=== PATIENT | male | born 1990 | race Caucasian/White ===

== ENCOUNTER 2020-08-14 16:57 | Outpatient (CLI) | payer BC, SELFPAY ==
--- NOTE | ~2020-08-14 | CT_ITS ---
EXAMINATION: CT abdomen pelvis wo con DATE: 08/14/2020 17:28 INDICATION: Right flank pain. History of kidney stones. TECHNIQUE: Computed tomography (CT) of the abdomen and pelvis was performed without intravenous contr ast. The dose-length product was 429.12 mGy-cm. Automated exposure control and iterative reconstructi on technique were employed. COMPARISON: None. FINDINGS: Lung bases unremarkable. Heart size normal. No pleural or pericardial effusion. No signific ant vascular abnormality. There are varicose veins in the left retroperitoneum, nonspecific. No evide nce for appendicitis. The liver, spleen, pancreas, adrenal glands and kidneys are unremarkable. There is a 7 mm distal righ t ureteral stone with mild hydronephrosis. No renal stones. Prostate gland is mildly prominent. Gallb ladder is contracted. Nonobstructive bowel gas pattern. No osteolytic or osteoblastic lesions. IMPRESSION: 1. Distal right ureteral stone measuring 7 mm with mild hydronephrosis. Reviewed, dictated and finalized at location A. MANAGER
== END 2020-08-14 16:58 | disposition home or self-care (01) ==
DX: R30.9 Painful micturition, unspecified (principal); R10.9 Unspecified abdominal pain; N20.1 Calculus of ureter
CPT/HCPCS: 74176

== ENCOUNTER 2024-09-08 17:18 | Emergency (ER) | payer BC, SELFPAY ==
[2024-09-08 17:18] VITALS: PULSE 85; RESP 16; TEMP 36.7; O2SAT 98
[2024-09-08 17:26] VITALS: BP 167/107
--- NOTE | 2024-09-08 17:45 | ED.DENTAL ---
HPI - Dental/Oral General Chief complaint: Dental/Oral Stated complaint: mouth infection Time Seen by Provider: 09/08/24 17:39 Source: patient Mode of arrival: ambulatory Limitations: no limitations History of Present Illness HPI Narrative: 33-year-old male with a history of hypertension on lisinopril, dental caries presents to the ED with -- left lower 1/2 premolar and 1st molar pain and erosion of the enamel. he went to his dentist who refused to extract these teeth as his blood pressure was high. -- He has a history of high blood pressure and is on lisinopril. His current blood pressure is noted to be 167/107. The patient has had blood work in the recent past without any significant abnormalities. MD Complaint: tooth pain Location: Tooth # ( 06/25/14-- erosion of enamel exposure of the discolored dentin) Onset (ago): day(s) Duration: constant Relieving factors: nothing Exacerbating factors: cold and heat Context: history of dental caries Treatment prior to arrival: none Related Data Home Medications ?Medication ?Instructions ?Recorded ?Confirmed ?Last Taken ?Type azithromycin 250 mg tablet mg 09/08/24 Unknown History ibuprofen 800 mg tablet mg 09/08/24 Unknown History lisinopril 10 mg tablet mg 09/08/24 Unknown History tramadol 50 mg tablet mg 09/08/24 Unknown History Allergies Allergy/AdvReac Type Severity Reaction Status Date / Time No Known Allergies Allergy Verified 09/08/24 17:26 Review of Systems Review of Systems: All systems reviewed & are unremarkable except as noted in HPI and below PMFSH Past Medical History Medical History (Updated 09/08/24 @ 18:08 by Regulo Boyle MD) Dental caries Hypertension Exam Narrative: blood pressure 167/107 Const: General: healthy appearing Nutritional Appearance: well nourished Orientation/consciousness: patient oriented x3 Limitations: no limitations HENMT: Head: normal to inspection Ears: external ears normal Face/Nose/Sinus: Normal external nose present Face and sinus: normal facial exam Teeth and gingiva: dentition normal ( dental erosion involving 12, 13, 14) Throat: posterior oropharynx normal Eyes: Conjunctivae: conjunctivae normal Pupils: Equal, round and reactive pupils present EOM: EOMs intact bilaterally Direct Ophthalmoscopy: no photophobia Neck: Neck: normal visual inspection, no lymphadenopathy and no meningeal signs Chest: Chest palpation & inspection: normal inspection of the chest Resp: Effort & Inspection: normal respiratory effort Auscultation: clear to auscultation bilaterally Cardio: Rate: regular rate Rhythm: regular rhythm GI: Auscultation: normal bowel sounds Other: no tenderness/rigidity / rebound. : General: Yes no CVA tenderness Back/Spine/Pelvis: Back: no CVA tenderness Skin: General skin exam: normal color Rashes: no rashes Wounds: no wounds Neuro: General: patient oriented x3, moves all extremities, no meningeal signs, no focal motor deficits and CN's II-XI intact bilaterally Speech: normal speech Extrem: General: normal to inspection and no clubbing, cyanosis or edema Psych: Mental Status: mental status grossly normal Affect: normal affect Course Course Emergency Course: Dental caries/ dental pain hypertension-- blood pressure of 167/107. The patient is on lisinopril 10. Will add hydrochlorothiazide Vital Signs Vital signs: Vital Signs Temperature 36.7 C 09/08/24 17:18 Pulse Rate 85 09/08/24 17:18 Respiratory Rate 16 09/08/24 17:18 Pulse Oximetry 98 09/08/24 17:18 Oxygen Delivery Room Air 09/08/24 17:18 Temperature 36.7 C 09/08/24 17:18 Pulse Rate 85 09/08/24 17:18 Respiratory Rate 16 09/08/24 17:18 Blood Pressure 167/107 H 09/08/24 17:26 Pulse Oximetry 98 09/08/24 17:18 Oxygen Delivery Room Air 09/08/24 17:18 MDM - Dental/Oral MDM Narrative Medical decision making narrative: dental caries dental pain hypertension Differential Diagnosis Differential diagnosis: Likely gingival abscess and toothache Medical Records Attestation: I reviewed the patient's medical records. Lab Data Attestation: I reviewed the patient's lab results. Discharge Plan Discharge Clinical Impression: Dental caries, Hypertension Patient Disposition: Home, Self-Care Condition: Stable Instructions: Antibiotic Form, Hypertension (ED), Toothache (ED) Patient Language: Peruvian Prescriptions: New hydrochlorothiazide 25 mg tablet 25 mg PO DAILY Qty: 90 0RF amoxicillin 500 mg capsule 1,000 mg PO Q12H Qty: 28 0RF hydrocodone-acetaminophen 5-325 mg tablet 1 tablet PO Q6H PRN (Reason: pain) Qty: 5 0RF No Action azithromycin 250 mg tablet ibuprofen 800 mg tablet tramadol 50 mg tablet lisinopril 10 mg tablet Follow-up/Referrals: Shad,Samantha Gurrola NP [Primary Care Provider] - Stand Alone Forms: Work/School Release IP Time of Disposition: 18:12
[2024-09-08 18:00] VITALS: BP 176/105; PULSE 80; RESP 18; O2SAT 99
[2024-09-08 18:18] VITALS: BP 158/116; PULSE 78; RESP 18; O2SAT 99
--- OUTSIDE RECORDS SUMMARY | 2024-09-08 18:38 | XMS_ITS | Continuity of Care Document ---
Author Organization [facility] Address [address] [place] [phone] Phone Care Team Providers Care Assistant Real Estate Manager Name Role Phone Nicola GODINEZ Betito Unavailable Unavailable Procedures Procedure Date Exam Limited Problem Focused Xray Periapical First Film Advance Directives Directive Yes / No Effective Date File Name No Information Encounters Encounter Description Practice Location Reason(s) For Visit Diagnoses Date Provider Providers Copied on Encounter [facility], [address] [place] [address], [id number], tel:[phone] No Information Nicola Betito. [address] [place], [place], [id number] . tel:[phone] Family History Family Member Type Diagnosis Age At Onset No Information Payers Payer name Insurance type Covered republican ID Authoriza tion(s) No Information Social History Type Description Quantity Date Captured Comments Sex Male Smoking Status No Information Chief Complaint And Reason For Visit No Information Reason For Referral Reason For Referral No Information History Of Present Illness Encounter Date Complaint History Of Prese nt Illness No Information Functional Status Date Functional Assessmen t No Information Instructions Date Instruction Additional Infor mation No Information Assessments Type Assessment Date No Information Patient Care Teams Name Effective Dates (start - stop) Status Members No Information
--- OUTSIDE RECORDS SUMMARY | 2024-09-08 18:38 | XMS_ITS | Data Portability ---
Author Organization [place] [facility], Main Office Address [address] [place] [address] Assessment Encounter Date Assessment Date Assessment LastModified by Organization Details LastModified Time 02/05/2023 02/05/2023 Call office if worse, ER if life-threatening illness RTC in 6 months and p.r.n. He voices understanding of plan and agrees [email or web address] Not available 02/05/2023 14:05:59 07/01/2023 07/01/2023 WEA- 07/01/23 Call office if worse, ER if life-threatening illness RTC in 6 months and p.r.n.- he plans transfer to a PCP in [place] He voices understanding of plan and agrees [email or web address] Not available 07/01/2023 12:00:26 Plan of Treatment Reminders Order Date Submit Date Provider Last Modified By Organization Details Last Modified Time Details Appointments None recorded. Lab CBC w/ auto diff [address] - Outpatient Lab, [address] [place], [address], 5 10:11:48 lipid panel, serum [address] Outpatient Lab, [address] [place], [address], 5 10:11:48 CMP, serum or plasma [address] Outpatient Lab, [address] [place], [address], 5 10:11:48 vitamin D, 25-hydroxy, total, serum [email or web address] Outpatient Lab, [address] [place], [address], 5 10:11:49 HbA1c (hemoglobin A1c), blood [email or web address] Outpatient Lab, [address] [place], [address], 5 10:11:49 hepatic function panel, serum [address] Outpatient Lab, [address] [place], [address], 5 10:11:48 CMP, serum or plasma 2022 023 [email or web address] [facility], [address], [place], [address], 4 12:54:07 CBC w/ auto diff 2022 023 [email or web address] [facility], [address], [place], [address], 4 12:54:07 lipid panel, serum 2022 023 [email or web address] [facility], [address], [place], [address], 3 11:53:38 HbA1c (hemoglobin A1c), blood 2022 023 [employer] [facility], [address], [place], [address], 3 11:53:38 CMP, serum or plasma 2022 023 [employer] [facility], [address], [place], [address], 3 11:53:38 CBC w/ auto diff 2022 023 [place] [employer] [facility], [address], [place], [address], 11:53:38 Referral None recorded. Procedures None recorded. Surgeries None recorded. Imaging None recorded. Medication Orders lisinopril 10 mg tablet 2024 025 [facility], [address] [place], [address], 5 12:47:38 Mounjaro 2.5 mg/0.5 mL subcutaneou s pen injector 2024 025 [email or web address] 3 [facility], [address] [place], [address], 5 14:53:50 lisinopril 10 mg tablet 2022 023 [facility], [address] [place], [address], 3 11:09:45 lisinopril 10 mg tablet [email or web address] [facility], [address] [place], [address], 3 14:00:42 Patient TargetsNo targets recorded. Patient Instructions Encounter Date Encounter Id Patient Instructions Last Modified By Organization Details Last Modified Time 07/01/2023 [id number] INFLUENZA VACCIN E Recommended today, but patient declined TD/TDAP Recommended today, patient declined Ordered Patient will get at local pharmacy/health department COLORECTAL SCREENING Recommended today, but patient declined Ordered Colonoscopy declined. Cologuard ordered No screening necessary until age 45 DEPRESSION SCREENING Negative BMI Overweight Continue healthy eating & exercise NUTRITION Continue healthy eating & exercise PHYSICAL ACTIVITY Need more activity minimum of 10-20 minutes of activity that causes mild breathlessness/da y minimum of 20-30 minutes activity that causes mild breathlessness/da y minimum of 30-40 minutes of activity that causes mild breathlessness/da y VISION Ordered Recommend ed today ALCOHOL USE No alcohol use Occasional/So cial Use TOBACCO USE former smoker current tobacco use Patient is not interested in smoking cessation at this time- Handout given GLUCOSE SCREENING Not needed LIPID SCREENING Not needed Not available 07/01/2023 12:01:35 Reason for Referral None Reported. Results Created Date Observation Date Name Description Value Unit Range Abnormal Flag Note LastModifiedBy Organization Detail LastModifiedTime Result Notes None recorded. Problems Name Problem SNOMED Code Status Onset Date Resolution Date Notes Provider Name and Address Organization Details Recorded Time Essential hypertension 98679636 Active 2022 ALEX NewmanC [address], [address], [place], [address], [employer] 3 12:41:31 Nicotine dependence 03335729 Active 2022 SHRAVAN Newman-C [address], [address], [place], [address], [employer] 3 14:06:35 Liver enzymes level above reference range 518605153 Active 2022 Crystal Maradiaga MA null, [employer] 3 11:18:30 Chest pain 45485093 Active 2022 ALEX NewmanC [address], [address], [place], [address], [employer] 3 10:58:36 Chronic dental pain Active 2024 BAUTISTA Serrano [address], [address], [place], [address], [employer] 5 10:24:50 Pain due to dental trauma Active 2024 BAUTISTA Serrano [address], [address], [place], [address], [employer] 5 10:25:23 Problem Notes None recorded. Procedures Surgical History Date Name Laterality Status Provider Name and Address Organization Details Recorded Time reconstruction of facial bones completed Crystal Maradiaga MA [employer] [facility] 02/05/2023 12:05:48 Lithotripsy completed Crystal Maradiaga MA [facility] [employer] [facility] 02/05/2023 12:06:05 Imaging Results None recorded. Procedure Notes None recorded. Medical Equipment None Reported. Allergies No known drug allergies Medications Name Sig Start Date Stop Date Status Note LastModified by Organization Details LastModified Time ibuprofen 800 mg tablet Take 1 tablet 3 times a day by oral route as needed. 2024 active Not Available Not Available Not Avai lable prednisone 20 mg tablet TAKE 2 TABLETS BY MOUTH ONCE DAILY IN THE MORNING WITH BREAKFAST FOR 5 DAYS 08/26 completed Not Available Not Available Not Available Zithromax Z-Dean 250 mg tablet TAKE 2 TABLETS (500 MG) BY ORAL ROUTE ONCE DAILY FOR 1 DAY THEN 1 TABLET (250 MG) BY ORAL ROUTE ONCE DAILY FOR 4 DAYS 2024 active Not Available Not Available Not Avai lable tramadol 50 mg tablet Take 1 tablet every 8 hours by oral route as needed, for severe pain. 2024 active Not Available Not Available Not Avai lable lisinopril 10 mg tablet Take 1 tablet every day by oral route. 2024 active Not Available Not Available Not Avai lable Mounjaro 2.5 mg/0.5 mL subcutaneou s pen injector INJECT 1 SYRINGE SUBCUTANE OUSLY ONCE A WEEK 2024 active Not Available Not Available Not Avai lable Vitals Date Recorded Body weight Body mass index (BMI) Body height Body temperature Heart rate Oxygen saturation Oxygen saturation in Arterial blood by Pulse oximetry Systolic blood pressure Diastolic blood pressure Provider Name and Address Organization Details Last Updated DateTime 3 21704.1 7 g 29.7 kg/m2 180.34 cm 98.3 [degF] 88 /min 97 % 97 % 128 mm[Hg] 84 mm[Hg] Crystal Maradiaga MA [facility] [employer] [facility] 3 12:08:47 Date Recorded Body height Body mass index (BMI) Body weight Body temperature Heart rate Oxygen saturation Oxygen saturation in Arterial blood by Pulse oximetry Systolic blood pressure Diastolic blood pressure Provider Name and Address Organization Details Last Updated DateTime 3 180.34 cm 29.4 kg/m2 66487.9 9 g 98.1 [degF] 108 /min 98 % 98 % 162 mm[Hg] 92 mm[Hg] Crystal Maradiaga MA [facility] [employer] [facility] 3 10:56:10 Date Recorded Body weight Body mass index (BMI) Body height Provider Name and Address Organization Details Last Updated DateTime 08/26/2024 92838.32 g 30.7 kg/m2 180.34 cm BAUTISTA Serrano [address] [facility], [facility] [address], [place], [address], [facility] [employer] 08/26/2024 12:32:50 Date Recorded Body temperature Heart rate Oxygen saturation Oxygen saturation in Arterial blood by Pulse oximetry Systolic blood pressure Diastolic blood pressure Provider Name and Address Organization Details Last Updated DateTime 97.6 [degF] 87 /min 99 % 99 % 142 mm[Hg] 88 mm[Hg] Yadira Ferguson RN [facility] [employer] [facility] 12:30:56 Social History Question Answer Notes LastModified by Organizat ion Details LastModified Time Tobacco Smoking Status Current Every Day Smoker Crystal Maradiaga MA null, [facility] [employer] 02/05/2023 12:01:21 What Is Your Level Of Alcohol Consumption? Occasional Information not available 02/05/2023 What Is Your Level Of Caffeine Consumption? Heavy Information not available 02/05/2023 In The 14 Days Before Symptom Onset, Have You Had Close Contact With A Laboratory-confi rmed COVID-19 While That Case Was Ill? No Information not available 02/05/2023 In The 14 Days Before Symptom Onset, Have You Had Close Contact With A Person Who Is Under Investigation For COVID-19 While That Person Was Ill? No Information not available 02/05/2023 Are You Currently Employed? Yes Information not available 02/05/2023 What Type Of Diet Are You Following? REGULAR Information not available 02/05/2023 Do You Or Have You Ever Used E-cigarettes Or Vape? Current User Of Electronic Cigarettes Information not available 02/05/2023 What Is The Highest Grade Or Level Of School You Have Completed Or The Highest Degree You Have Received? 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 No Information not available 02/05/2023 What Is The Fluoride Status Of Your Home? Unknown Information not available 02/05/2023 Are There Any Guns Present In Your Home? Yes Information not available 02/05/2023 Do You Use Insect Repellent Routinely? No Information not available 02/05/2023 Where Do You Live? [facility] Information not available 02/05/2023 What Was The Date Of Your Most Recent Tobacco Screening? 07/01/2023 Information not available 07/01/2023 Do You Have Any Pets? Yes Information not available 02/05/2023 What Is Your Relationship Status? Information not available 02/05/2023 Do You Use Your Seat Belt Or Car Seat Routinely? No Information not available 02/05/2023 Do You Have Smoke And Carbon Monoxide Detectors In Your Home? Yes Information not available 02/05/2023 Are You Passively Exposed To Smoke? Yes Information not available 02/05/2023 Are There Any Smokers In Your House? No Information not available 02/05/2023 How Much Tobacco Do You Smoke? 1 PPD Information not available 02/05/2023 Do You Feel Stressed (tense, Restless, Nervous, Or Anxious, Or Unable To Sleep At Night)? [id number] Information not available 02/05/2023 Do You Use Sunscreen Routinely? No Information not available 02/05/2023 Have You Recently Traveled Abroad? No Information not available 02/05/2023 Do You Have Any Dietary Restrictions? No Information not available 02/05/2023 Do You Or Have You Ever Used Any Other Forms Of Tobacco Or Nicotine? Yes Information not available 02/05/2023 Sex: Unknown Functional Status Question Answer Note LastModified by Organizat ion Details LastModified Time What is your exercise level? Occasional Information not available 02/05/2023 Mental Status None recorded. Family History Relationship Description Onset Age of this Age Resolved Age Notes LastModified by Organization Details LastModified Time Mother Malignant neoplasm of skin Not available 2022 11:58:38 Paternal Grandmother Malignant tumor of lung Not available 2022 11:59:01 Paternal Grandfather Malignant neoplasm of liver Not available 2022 11:59:20 Notes:Strong History of vari ety of cancers on both sides Medical History Condition Response NERVE DISEASE N BLINDNESS N RHEUMATIC FEVER N KIDNEY STONES N BLADDER PROBLEMS N MRSA N OTHER # 1 N POLIO N LUNG DISEASE/DISORDER N HISTORY OF DRUG ABUSE N RADIATION / CHEMOTHERAPY N COPD N Other # 2 N BLOOD DISEASES N EAR OR HEARING PROBLEMS N MUMPS N SHINGLES N BOWEL PROBLEMS N DEPRESSION (INCLUDING POST ) N FAILED BACK SYNDROME N STROKE/TIA N ULCERS N BENIGN PROSTATIC HYPERPLASIA N MEASLES N HYPOTENSION N MYOCARDIAL INFARCTION N OBESITY N GERD/NAUSEA N ANEURYSM N URINARY/BLADDER/KIDNEY PROBLEMS N CORONARY ARTERY DISEASE (CAD) N Do you have Advance directive? N ADDICTION CONCERNS N ENDOMETRIOSIS N Impotence N USE OF BLOOD THINNERS N SKIN PROBLEMS N GASTROINTESTINAL DISORDER N PERIPHERAL VASCULAR DISEASE N MUSCLE,JOINT OR BONE PROBLEMS N GASTROINTESTINAL BLEEDING N BLOOD CLOTS N ASTHMA N Abdominal Pain N CATARACTS N ARTERIAL INSUFFICIENCY N ERECTILE DYSFUNCTION N VARICOSITIES N GI PROBLEMS N Low Testosterone N INFERTILITY N AIDS/HIV N CHEMOTHERAPY / RADIATION N LIVER DISEASE N MALE HYPOGONADISM N HYPERTENSION Y Deficiency N TOURETTE'S N ANXIETY DISORDER N BLOOD TRANSFUSION N ANEMIA/BLOOD DISORDER N CHRONIC EAR INFECTIONS N TUBERCULOSIS N GLAUCOMA N FOOT PROBLEM N DIVERTICULITIS N CHICKENPOX N SLEEP APNEA N BACK INJECTIONS N ALLERGIES/HAYFEVER N INFECTIOUS DISEASE N HEART ARRHYTHMIA N PROSTATE N ESRD N INSOMNIA N HIGH CHOLESTEROL / HYPERLIPIDEMIA N HYPERTHYROIDISM N EYE PROBLEMS N PVD N EDEMA N CHRONIC PAIN SYNDROME N HYPOTHYROIDISM N CONSTIPATION N CAROTID BLOCKAGE N BACK / NECK PROBLEMS N HAVE YOU BEEN HOSPITALIZED OR SEEN IN [facility] IN THE PAST YEAR ? N ATHEROSCLEROSIS N BREAST PROBLEMS N DIALYSIS N POLYCYSTIC OVARIES N ECZEMA N OSTEOPOROSIS N ARTHRITIS N NO SIGNIFICANT PAST MEDICAL HISTORY N APPENDICITIS N DIABETES, TYPE N BAD TEETH N VON WILLIBRAND'S DISEASE N ENT N HEARTBURN / REFLUX N GI N AUTISM SPECTRUM DISORDER (ASD) N POST LAMINECTOMY SYNDROME N HEPATITIS / LIVER DISEASE N GOUT N SLEEP DISORDER N ALZHEIMER'S DISEASE N Brain Problems N HERPES N DEMENTIA N HEADACHES/MIGRAINES N SEIZURES/EPILEPSY N VASCULAR DISEASE N PACEMAKER N DIZZINESS N HEART DISEASE/HEART PROBLEMS N KIDNEY DISEASE N MULTIPLE SCLEROSIS N NEUROPSYCHOLOGICAL N CARDIAC ARRHYTHMIA N CANCER: SPECIFY N ATRIAL FIBRILLATION N Gall Stones N PULMONARY EMBOLISM N AUTOIMMUNE DISEASE N Past Encounters Encounter ID Performer Location Encounter Start Date Encounter Closed Date Diagnosis/Indication Diagnosis SNOMED-CT Code Diagnosis ICD10 Code Diagnosis Note [id number] BAUTISTA Newman [facility] Internal Med Alexa landeros [address] [place] [address] 02/05/2023 11:51:36 02/05/2023 12:44:05 Adult health examination 576717195 Z00.00 Cholesterol screening 27 2605305 Z13.220 Diabetes m ellitus screening 830356368 Z13.1 Essential hypertension 79432123 I10 On lisinopril Chest pain 94655305 R07. 9 1 episode approximat courtney 2 months ago Declines any EKG or workup today Call office if recurs, ER precaution s Nicotine dependence 5629 4008 F17.200 3 min spent with patient discussing risks, cessation options. Patient encouraged to quit. [id number] BAUTISTA Newman [facility] Internal Med [facility] [address] [facility], [address] [place] [address] 07/01/2023 10:49:03 07/01/2023 11:11:03 Essential hypertension 79671436 I10 On lisinopril elevated today but he forgot to take his meds today- he does have a BP cuff at home, he will take his meds, then take his BP and call us with the reading ER precaution s Adult heal th examination 463430189 Z00.01 Nicotine dependence 5629 4008 F17.200 3 min spent with patient discussing risks, cessation options. Patient encouraged to quit. Liver enzy mes level above reference range 439639119 R74.8 recheck CMP Depression screening 171 758038 Z13.31 Body mass index 25-29 - overweight 242324521 Z68.29 recommend healthy, well balanced mealsfocus on lean meats, fresh vegetables , fresh fruits, whole grainsredu ce fast/proce ssed foods or eating out to no more than 1-2 times per weekaim to get 30 min of exercise most days of the week- walking is a great choicealso recommend resistance training 2-3 times per week [id number] Samantha Kulkarni, BAUTISTA [facility] Hammad landeros [address] [facility] [address] [place] [address] 08/26/2024 12:26:58 08/26/2024 12:49:28 Adult health examination 807766391 Z00.00 Discussed medication compliance and routine follow up.Discuss ed healthy diet and routine exercise.R allysoniewed vaccine records and made recommenda tions as needed.Enc ouraged annual eye and dental exams, as well as twice yearly dental cleanings. Will check screening labs as listed below. Essential hypertension 70358007 I10 142/88 initialDis cussed DASH diet and routine exercise.W ill refill meds as listed below. Liver enzy mes level above reference range 273786369 R74.8 Dietary ma nagement surveillance 362111661 Z71.3 Health Concerns Section Related Observation LastModified by Organization Detai ls LastModified Time None Recorded Concern Status LastModified by Organization Details LastModified Time None Recorded Advance Directives Directive None Recorded Payers Encounter Date Sequence Insurance Name Policy Number Policy Tobar Covered Member ID Tobar Member ID Guarantor Name 02/05/2023 1 [place] 000 Helder Gorman Head [id number] Helder [facility] 07/01/2023 1 [place] 000 Helder Gorman Head [id number] Helder Head 08/26/2024 1 [place] 000 Helder Gorman Head [id number] Helder Head Notes Date Note Type Note Provider Name and Address Organization Details Recorded Time 02/05/2023 text/html Helder presents today to establish care. Previous PCP- [facility]. 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 He has not had any recurrence of that since. He does not want to pursue any EKG or workup at this time. He reports his blood pressure is well controlled on the lisinopril. No side effects. He has not had any issues with kidney stones lately. He does not have to follow-up with urology regularly, only p.r.n.. He does smoke 1ppd, not ready to quit yet. Has tried chantix before, d/c due to nausea. He is due for labs. BAUTISTA Newman [address], [address], [place], [address], [employer] 02/05/2023 14:06:57 07/01/2023 text/html Helder presents today for his annual wellness exam. He reports he is feeling well and denies any complaints. His blood pressure is elevated today, however he forgot to take his medication today. He is asymptomatic with this today. He does have a blood pressure cuff at home. Typically, when he is on his medication, his blood pressure is controlled. He declines flu vaccine today. He is due for labs. BAUTISTA Newman [address], [address], [place], [address], [employer] 07/01/2023 12:01:56 08/26/2024 text/html Patient is a 33 year old male that presents to the office for annual wellness. Patient reports he is doing well on current medications and has no concerns at this time. Hypertension: Lisinopril 10mg daily. Patient is concerned with weight gain and would like to see if Mounjaro is covered by his insurance. Patient reports recent diet changes. labs- orderedFlu- awareCovid- UTDTdap- aware BAUTISTA Serrano [address], [address], [place], [address], [employer] 08/26/2024 12:51:08
--- OUTSIDE RECORDS SUMMARY | 2024-09-08 18:38 | XMS_ITS | Clinical Summary ---
Author Organization [facility] Address [address] [place] [address] Phone Care Team Providers Care Route Sales Delivery Drivers Supervisor Name Role Phone Mary Grace Harris APRN, DAYRON Primary Care P rorenéeder Allergies No known active allergies Medications lisinopril (PRINIVIL, ZESTRIL) 10 MG TabletIndication s:Hypertension, unspecified type Take 1 Tablet by mouth daily. 90 Tablet 3 10/15/2021 Active Active Problems Problem Noted Date Diagnosed Date Right ureteral stone 08/22/2020 Immunizations Immunization Administration Dates Next Due Covid-19, Mrna, Lnp-s, PF, 1 00 mcg/0.5 mL Dose (Moderna) 11/14/2020,10/17/2020 Influenza Vaccine, Quadrivalent, PF 04/07/2020 Pneumococcal Vaccine Adult - 23 Valent 0 TDAP Vaccine 03/02/2020 Family History Medical History Relation Name Comments No Known Problems Brother 1 No Known Problems Brother 2 High Cholesterol Father Hypertension Father Cancer Maternal Grandfather colon? Heart Attack Maternal Grandfather Cancer Maternal Grandmother melanom a Heart Attack Maternal Grandmother Diabetes Mother Heart Attack Mother High Cholesterol Mother Hypertension Mother Cancer Paternal Grandfather liver C A Heart Attack Paternal Grandfather Cancer Paternal Grandmother lung- s moking hx Heart Attack Paternal Grandmother No Known Problems Sister 1 No Known Problems Sister 2 Relation Name Status Comments Brother 1 Alive Brother 2 Alive Father Alive Maternal Grandfather Maternal Grandmother Mother Alive Paternal Grandfather fr om liver cancer Paternal Grandmother fr om lung cancer Sister 1 Alive Sister 2 Alive Social History Tobacco Use Types Packs/Day Years Used Date Smoking Tobacco: Every Day Cigarettes 1 13 Smokeless Tobacco: Never Tobacco Cessation:Ready to Q uit: No; Counseling Given: No Alcohol Use Standard Drinks/Week Comments Yes 3 (1 standard drink = 0.6 oz pur e alcohol) AUDIT-C Answer Date Recorded Q1: How often do you have a drink containing alc ohol? 2-4 times a month 03/02/2020 Q2: How many drinks containi ng alcohol do you have on a typical day when you are drinking? 1 or 2 03/02/2020 Q3: How often do you have si x or more drinks on one occasion? Less than monthly 03/02/2020 PHQ-2 Answer Date Recorded Total Score - Questions 1-9 0 07/2020 Sexually Active Control Partners Comments Yes Female Sex and Gender Information Value Date Recorded Sex Assigned at Not on file Legal Sex Male 10:30 AM CDT Gender Identity Not on file Sexual Orientation Not on file Last Filed Vital Signs Vital Sign Reading Time Taken Comments Blood Pressure 118/82 10/15/2021 1:39 PM CDT Pulse 92 10/15/2021 1:39 PM CDT Temperature 37 C (98.6 F) 10/15/2021 1:39 PM CDT Respiratory Rate 20 10/15/2021 1:39 PM CDT Oxygen Saturation 97% 10/15/2021 1:39 PM CDT Inhaled Oxygen Concentration - - Weight 95.7 kg (211 lb) 10/15/2021 1:39 PM CDT Height 177.8 cm (5' 10 ) 10/15/2021 1:39 PM CDT Body Mass Index 30.28 10/15/2021 1:39 PM CDT Plan of Treatment Health Maintenance Due Date Last Done Comments Hepatitis B Immunization (1 of 3 - 19+ 3-dose series) 2008 Influenza Immunization (#1) 2024 04/07/2020 SARS-COV-2 Immunization ( - season) 2024 11/14/2020, 10/17/2020 Td Immunization Every 10 Years (Adults With 1 Tdap) 03/02/2030 03/02/2020 Respiratory Syncytial Virus (RSV) Immunization (Adult) (1 - 1-dose 75+ series) 2064 DTaP/Tdap/Td Immunization Discontinued 03/02/2020 Hepatitis C Virus (HCV) Screening Completed 03/02/2020 Pneumococcal Immunization Combined Aged Out 03/02/2020 No longer eligible based on patient's age to complete this topic Meningococcal Immunization (ACWY) Aged Out No longer eligible based on patient's age to complete this topic Rotavirus Immunization Aged Out No lo nger eligible based on patient's age to complete this topic Medical Devices Implanted Type Area Surgical Assistant Device Identifier Shelf Expiration Date Model / Serial / Lot Stent Ureteral 6fr 2.1fr 26cm 2 Pigtail Curve 2 Durometer Taper Tip Loprfl Graduated Network for [employer] Ultra - [id number] Implanted:Qty : 1 on 08/22/2020 by Tori Lozoya MD at [facility] IMPLANT Right: Ureter LookTracker 05/30/2023 [id number] / [id number] / [id number] Procedures Procedure Name Priority Date/Time Associated Diagnosis Comments HEPATITIS C ANTIBODY Routine 03/02/2020 8:44 AM CDT Preventative health care (Adult) from Last 3 Months or Most Recently Relevant to Health Maintenance Results * HEPATITIS C ANTIBODY (03/02/2020 8:44 AM CDT) hepatitis C antibody 0.14 <1 S/CO 03/02/2020 9:08 PM CDT [facility] Comment: Signal/Cutoff ratio < 0.79 is Nondetected Signal/Cutoff ratio 0.80-0.99 is Grayzone Signal/Cutoff ratio > 0.99 is Detected Supplemental assays are recommended if signal/cutoff ratio is >/=1.00. Signal/cutoff ratio result >/= 5.00 is 97% predictive of positivity for recombinant immunoblot assay (RIBA) and will be reported to the [place] Department of Public Health as required. Blood Venipuncture / Unknown 03/02/2020 8:44 AM CDT 03/02/2020 8:44 AM CDT Kofi Zamora PAC CHEMISTRY ORDERABLES Fin al Result [facility] [address] [place] [address], from Last 3 Months or Most Recently Relevant to Health Maintenance Insurance [facility] Care Teams Route Sales Delivery Drivers Supervisor Relationship Specialty Start Date End Date Mary Grace Harris, NATURAL GAS SHOTHOLE DRILLER, ROVING HAND [address] [place] [address] PCP - General Advanced Practice Nurse 10/15/21
--- OUTSIDE RECORDS SUMMARY | 2024-09-08 18:38 | XMS_ITS | Encounter Summary ---
Author Organization [facility] Address [address] [place] [address] Phone Care Team Providers Care Diamond Merchant Name Role Phone Kofi Zamora Primary Care Provider Mary Grace Durant APRN, DAY[facility] Primary Care P kayleerenéemya Reason for Visit * Reason Comments Medication Refill lisinopril Encounter Details Date Type Department Care Team (Late st Contact Info) Description 07/04/2020 Refill [facility] Care - [place] [address] [place] [address] Kofi Zamora, KATE Medication Refill (lisinopril) Social History Tobacco Use Types Packs/Day Years Used Date Smoking Tobacco: Every Day Cigarettes 1 13 Smokeless Tobacco: Never Alcohol Use Standard Drinks/Week Comments Yes 3 [...] than monthly 03/02/2020 PHQ-2 Answer Date Recorded PHQ-2 Score 0 03/02/2020 Sexually Active Control Partners Comments Yes Female Sex and Gender Information Value Date Recorded Sex Assigned at Not on file Legal Sex Male 10:30 AM CDT Gender Identity Not on file Sexual Orientation Not on file documented as of this encounter Miscellaneous Notes * Telephone Encounter - Clari Rowell RN - 07/04/2020 10:53 AM FITTER HAND Medication approved and signed per standing order protocol. ER HAND * Telephone Encounter - Anastasiya Galicia - 07/04/2020 10:40 AM FITTER HAND Pt is going to be out on and is leaving to go out of town early tomorrow morning. Pt would like to pick this up before he leaves. Rx pended for your review and approval. Thank you. ER HAND * Telephone Encounter - Va Wasserman CMA - 07/04/2020 10:28 AM FITTER HAND Rerouting ER HAND documented in this encounter Plan of Treatment Not on file documented as of this encounter Visit Diagnoses Diagnosis Hypertension, unspecified type- Primary documented in this encounter Additional Health Concerns Assessment Noted Time PHQ-9 Depression Total Score: 0 03/02/20 20 7:00 AM CDT documented as of this encounter Care Teams Diamond Merchant Relationship Specialty Start Date End Date Kofi Zamora PAC PCP - General Physician Straightening Press Operator Helper 03/02/20 10/14/21 Mary Grace Harris APRN, TRAVELING NURSE [address] [place] [address] PCP - General Advanced Practice Nurse 10/15/21 documented as of this encounter
--- OUTSIDE RECORDS SUMMARY | 2024-09-08 18:51 | XMS_ITS | Continuity of Care Document ---
Author Organization [facility] Address [address] [place] [address] Phone Care Team Providers Care Manufacturer Name Role Phone Nicola GODINEZ Betito Unavailable Unavailable Procedures Procedure Date Exam Limited Problem Focused Xray Periapical First Film Advance Directives Directive Yes / No Effective Date File Name No Information Encounters Encounter Description Practice Location Reason(s) For Visit Diagnoses Date Provider Providers Copied on Encounter [facility], [address] [place] [address], [id number], tel:[phone] [facility] No Information Nicola Betito. [address] [place], [place], [id number] . tel:[phone] Family History Family Member Type Diagnosis Age [...]
== END 2024-09-08 18:18 | disposition home or self-care (01) ==
PROVIDERS: Emergency Provider Internal Medicine Critical Care Medicine; PCP Nurse Practitioner Family
DX: K02.9 Dental caries, unspecified (principal); I10 Essential (primary) hypertension; Z79.1 Long term (current) use of non-steroidal anti-inflammatories (NSAID); Z79.899 Other long term (current) drug therapy; Z79.891 Long term (current) use of opiate analgesic
CPT/HCPCS: 99283

== ENCOUNTER 2025-05-14 09:11 | Emergency (ER) | payer BC, SELFPAY ==
--- OUTSIDE RECORDS SUMMARY | 2010-12-05 03:30 | XMS_ITS | Continuity of Care Document ---
Author Organization [facility] Address [address] [place] [phone] Phone Care Team Providers Care Solid Waste Management Engineer Name Role Phone Betito Petersen DDS Unavailable Unavailable Procedures Procedure Date Exam Limited Problem Focused Xray Periapical First Film Advance Directives Directive Yes / No Effective Date File Name No Information Encounters Encounter Description Practice Location Reason(s) For Visit Diagnoses Date Provider [facility], [address] [place] [address], [id number], tel:[phone] No Information [address] [address] [place], [place], [id number]. tel:[phone] Family History Family Member Type Diagnosis Age At Onset No Information Payers Payer name Insurance type Covered libertarian ID Authoriza tion(s) No Information Social History Type Description Quantity Date Captured Comments Sex Male Smoking Status No Information Chief Complaint And Reason For Visit No Information History Of Present Illness Encounter Date Complaint History Of Prese nt Illness No Information Instructions Date Instruction Additional Infor mation No Information Assessments Type Assessment Date No Information
--- OUTSIDE RECORDS SUMMARY | 2010-12-05 03:30 | XMS_ITS | Continuity of Care Document ---
Author Organization [facility] Address [address] [place] [phone] Phone Care Team Providers Care Graphics Specialist Name Role Phone Betito Petersen DDS Unavailable Unavailable Procedures Procedure Date Exam Limited Problem Focused Xray Periapical First Film Advance Directives Directive Yes / No Effective Date File Name No Information Encounters Encounter Description Practice Location Reason(s) For Visit Diagnoses Date Provider [facility], [address] [place] [address], [id number], tel:[phone] No Information [address] [address] [place], [place], [id number]. tel:[phone] Family History Family Member Type Diagnosis Age At Onset No Information Payers Payer name Insurance type Covered constitution party ID Authoriza tion(s) No Information Social History Type Description Quantity Date Captured Comments Sex Male Smoking Status No Information Chief Complaint And Reason For Visit No Information History Of Present Illness Encounter Date Complaint History Of Prese nt Illness No Information Instructions Date Instruction Additional Infor mation No Information Assessments Type Assessment Date No Information
--- NOTE | ~2025-05-14 | CT_ITS ---
CT ABDOMEN AND PELVIS WITHOUT CONTRAST Clinical History: Abdominal pain, nausea, vomiting x3mo. Hematuria today. Comparison: CT abdomen pelvis 08/14/2020 Technique: Unenhanced axial images lung bases to symphysis pubis Coronal, sagittal reformats CT images acquired with automatic exposure control for dose reduction DLP: 246 mGy-cm Findings: Without intravenous contrast, sensitivity for detecting visceral parenchymal abnormalities decreased. Lung bases: Clear. Visualized heart and pericardium: Unremarkable. Liver: Steatosis. Gallbladder: Mild wall thickening. Spleen: Unremarkable. Pancreas: Unremarkable. Adrenal glands: Unremarkable. Kidneys: Right kidney- No hydronephrosis. 1 mm stone. Left kidney- No hydronephrosis. No renal stones. Circumaortic renal vein. Distal esophagus/stomach: Small sliding hiatal hernia. Small bowel loops: Normal caliber and wall thickness. Colon: Normal caliber and wall thickness. Normal RLQ appendix. Nodes: No enlarged nodes. Peritoneum: No ascites. No free intraperitoneal air. Urinary bladder: Unremarkable. Prostate: Unremarkable. Bones: No acute bony abnormality. Soft tissues: Unremarkable. Unopacified abdominal aorta: No aneurysmal dilatation. IMPRESSION: 1. Nonspecific gallbladder wall thickening. If concern for cholecystitis, consider RUQ US and/or HIDA scan. 2. 1 mm stone right kidney. No hydronephrosis. Reviewed, dictated and finalized at location R. IMPRESSION: 1. Nonspecific gallbladder wall thickening. If concern for cholecystitis, cons ider RUQ US and/or HIDA scan. 2. 1 mm stone right kidney. No hydronephrosis.
[2025-05-14 09:11] VITALS: BP 132/94; PULSE 106; RESP 18; TEMP 36.4; O2SAT 100
--- OUTSIDE RECORDS SUMMARY | 2025-05-14 09:18 | XMS_ITS | Encounter Summary ---
Author Organization [facility] Address [address] [place] [address] Phone Care Team Providers Care Fitter Tacker Name Role Phone Kofi Zamora Primary Care Provider Mary Grace Durant APRN, DAYRON Primary Care P wilbermya Reason for Visit * Reason Comments Medication Refill lisinopril Encounter Details Date Type Department Care Team (Late st Contact Info) Description 07/04/2020 Refill [facility] - Primary Care - [place] [address] [place] [address] Kofi Zamora, KATE Medication Refill [...] Clari Rowell RN - 07/04/2020 10:53 AM MILL TURNER Medication approved and signed per standing order protocol. TURNER * Telephone Encounter - Anastasiya Galicia - 07/04/2020 10:40 AM MILL TURNER Pt is going to be out on and is leaving to go out of town early tomorrow morning. Pt would like to pick this up before he leaves. Rx pended for your review and approval. Thank you. TURNER * Telephone Encounter - Va Wasserman CMA - 07/04/2020 10:28 AM MILL TURNER Rerouting TURNER documented in this encounter Plan of Treatment Not on file documented as of this encounter Visit Diagnoses Diagnosis Hypertension, unspecified type- Primary documented in this encounter Additional Health Concerns Assessment Noted Time PHQ-9 Depression Total Score: 0 03/02/20 20 7:00 AM CDT documented as of this encounter Care Teams Fitter Tacker Relationship Specialty Start Date End Date Kofi Zamora PAC PCP - General Physician Loss Prevention Agent 03/02/20 10/14/21 Mary Grace Harris APRN, [employer] HAZMAT TANKER DRIVER [address] [place] [address] PCP - General Advanced Practice Nurse 10/15/21 documented as of this encounter
--- OUTSIDE RECORDS SUMMARY | 2025-05-14 09:18 | XMS_ITS | Clinical Summary ---
Author Organization [facility] Address [address] [place] [place] [address] Phone Care Team Providers Care Oil Analyst Name Role Phone Mary Grace Harris APRN, [...] 1:39 PM CDT Height 177.8 cm (5' 10) 10/15/2021 1:39 PM CDT Body Mass Index 30.28 10/15/2021 1:39 PM CDT Plan of Treatment Health Maintenance Due Date Last Done Comments Hepatitis B Immunization (1 of 3 - 19+ 3-dose series) 2008 Human Papillomavirus (HPV) Immunization (1 - 3-dose SCDM series) 2016 Influenza Immunization (#1) 2025 04/07/2020 SARS-COV-2 Immunization ( season) 2025 11/14/2020, 10/17/2020 Td Immunization Every 10 Yea rs (Adults With 1 Tdap) 03/02/2030 03/02/2020 Respiratory [...] this topic Medical Devices Implanted Type Area Line Haul Truck Driver Device Identifier Shelf Expiration Date Model / Serial / Lot Stent Ureteral 6fr 2.1fr 26cm 2 Pigtail Curve 2 Durometer Taper Tip Loprfl Graduated [employer] Ultra - [id number] Implanted:Qty : 1 on 08/22/2020 by Tori Lozoya MD at [facility] IMPLANT Right: Ureter Azadi 05/30/2023 [id number] / [id number] / [id number] Procedures Procedure Name Priority Date/Time Associated Diagnosis Comments HEPATITIS C ANTIBODY Routine 03/02/2020 8:44 AM CDT Preventative health care (Adult) from Last 3 Months or Most Recently Relevant to Health Maintenance Results * HEPATITIS C ANTIBODY (03/02/2020 8:44 AM CDT) hepatitis C antibody 0.14 <1 S/CO 03/02/2020 9:08 PM CDT [facility] Comment: Signal/Cutoff ratio < 0.79 is Nondetected Signal/Cutoff ratio 0.80-0.99 is Grayzone Signal/Cutoff ratio > 0.99 is Detected Supplemental assays are recommended if signal/cutoff ratio is >/=1.00. Signal/cutoff ratio result >/= 5.00 is 97% predictive of positivity for recombinant immunoblot assay (RIBA) and will be reported to the [place] Department of Public Health as required. Blood Venipuncture / Unknown 03/02/2020 8:44 AM CDT 03/02/2020 8:44 AM CDT us Kofi Zamora PAC CHEMISTRY ORDERABLES Fin al Result [facility] [address] [place] [address], from Last 3 Months or Most Recently Relevant to Health Maintenance Insurance [facility] Care Teams Oil Analyst Relationship Specialty Start Date End Date Mary Grace Harris APRN, HARDSCAPE FOREMAN [address] [place] [address] PCP - General Advanced Practice Nurse 10/15/21
--- NOTE | 2025-05-14 09:31 | ED_ITS ---
HPI - Male Genitourinary General Chief complaint: Urogenital-Male Stated complaint: blood in urine; back pain Time Seen by Provider: 05/14/25 09:22 Source: patient and family Mode of arrival: ambulatory Limitations: no limitations History of Present Illness HPI Narrative: This is a 34-year-old male who presents with hematuria has been having some low back and flank pain has history of kidney stones and has been having issues with nausea vomiting. Presents today concerned with some low back discomfort and flank pain but currently his pain level is completely resolved and there is currently no nausea vomiting. Patient has no fever chills no abdominal pain no chest pain no shortness of breath no diarrhea constipation. Patient has been seen by his primary care physician and has improved on cyclobenzaprine for low back pain. Onset (ago): day(s) Location: right flank and left flank Severity: mild Quality: aching and dull Relieving factors: urination Related Data Home Medications ?Medication ?Instructions ?Recorded ?Confirmed ?Last Taken ?Type lisinopril 10 mg tablet 10 mg PO DAILY 09/08/2408/07 Unknown History cyclobenzaprine 10 mg tablet 10 mg PO Q8H PRN back tarun n 05/14/25 05/14/25 Unknown History Allergies Allergy/AdvReac Type Severity Reaction Status Date / Time No Known Allergies Allergy Verified 05/14/25 09:34 Review of Systems Review of Systems: All systems reviewed & are unremarkable except as noted in HPI and below PMFSH Past Medical History Medical History Dental caries Hypertension Exam Const: General: healthy appearing and no acute distress Nutritional Appearance: well nourished Limitations: no limitations Resp: Effort & Inspection: normal respiratory effort Auscultation: clear to auscultation bilaterally Cardio: Rate: regular rate Rhythm: regular rhythm GI: GI Palp: Yes Soft to palpation Auscultation: normal bowel sounds : General: Yes bladder normal to palpation Back/Spine/Pelvis: Back: no CVA tenderness Skin: General skin exam: normal color Rashes: no rashes Neuro: General: patient oriented x3 and moves all extremities Course Course Emergency Course: Medical decision making narrative: The patient was evaluated by myself the emergency department. History obtained from patient who is an independent historian physical exam performed witnessed by nurse. Patient had blood work which had shown an elevated bilirubin level of 6.5 with an elevated ALT and AST. Patient is afebrile with vital signs stable with blood pressure 132/94 with a heart rate of 106 respiratory rate of 18. Patient had CT scan performed that showed 1mm right kidney stone and gallbladder thickening and recommendation for ultrasound. Repeat assessment: Patient doing well on repeat exam with no acute distress currently pain level is 0 with no current nausea or vomiting. Symptoms are stable since arrival to the ED. Repeat vitals are stable Patient agrees with discussion after shared medical decision advise patient to be evaluated at [facility], and spoke to a physician in the ER that accepted patient for your ER transfer. All questions answered to the patient's satisfaction. Vital Signs Vital signs: Vital Signs Temperature 36.4 C L 05/14/25 09:11 Pulse Rate 106 H 05/14/25 09:11 Respiratory Rate 18 05/14/25 09:11 Blood Pressure 132/94 H 05/14/25 09:11 Pulse Oximetry 100 05/14/25 09:11 Oxygen Delivery Room Air 05/14/25 09:11 Temperature 36.4 C L 05/14/25 09:11 Pulse Rate 106 H 05/14/25 09:11 Respiratory Rate 18 05/14/25 09:11 Blood Pressure 132/94 H 05/14/25 09:11 Pulse Oximetry 100 05/14/25 09:11 Oxygen Delivery Room Air 05/14/25 09:11 Critical Care Time Critical Care Time Critical Care Time: No Discharge Plan Discharge Clinical Impression: Elevated bilirubin, Calculus, ureteral, Abnormal LFTs (liver function tests) Patient Disposition: Acute Care Hospital Condition: Stable Additional Instructions: Advised patient to go directly to [facility] for further evaluation and treatment. Patient Language: Northern Irish Prescriptions: No Action azithromycin 250 mg tablet ibuprofen 800 mg tablet tramadol 50 mg tablet lisinopril 10 mg tablet hydrochlorothiazide 25 mg tablet 25 mg PO DAILY Qty: 90 0RF amoxicillin 500 mg capsule 1,000 mg PO Q12H Qty: 28 0RF hydrocodone-acetaminophen 5-325 mg tablet 1 tablet PO Q6H PRN (Reason: pain) Qty: 5 0RF Follow-up/Referrals: Shad,Samantha Gurrola NP [Primary Care Provider, Unknown] Time of Disposition: 10:29
[2025-05-14] MEDS: SODIUM CHLORIDE 0.9% IV 1,000 ML 999 ML IV CONT (09:46)
[2025-05-14 09:47] LABS: Hematocrit 48.7 % (40.0-54.0); Hemoglobin 17.0 g/dL (14.0-18.0); Immature Granulocyte Percent A 0.3 % (0.0-0.0); Lymphocytes Absolute Auto 1.30 K/mm3 (1.10-4.50); Mean Corpuscular HGB Conc 34.9 g/dL (32-36); Mean Corpuscular Hemoglobin 32.9 pg (27.0-31.0); Mean Corpuscular Volume 94.4 fL (78.0-102.0); Nucleated Red Blood Cells Absolute Auto 0.00 K/mm3 (0.00-0.00); Nucleated Red Blood Cells Perc 0.0 % (0-0.0); Platelet Count Result 241 K/mm3 (150-420); Red Blood Count 5.16 M/mm3 (4.70-6.10); White Blood Count 7.4 K/mm3 (4.8-10.8)
--- OUTSIDE RECORDS SUMMARY | 2025-05-14 09:52 | XMS_ITS | Encounter Summary ---
Author Organization [facility] Address [address] [place] [address] Phone Care Team Providers Care Brake Drum Molder Name Role Phone Kofi Zamora Primary Care Provider Mary Grace Durant APRN, DAYRON Primary Care P wilbermya Reason for Visit * Reason Comments Medication Refill lisinopril Encounter Details Date Type Department Care Team (Late st Contact Info) Description 07/04/2020 Refill [facility] Primary Care - [place] [address] [place] [address] Kofi Zamora, KATE Medication Refill [...] Clari Rowell RN - 07/04/2020 10:53 AM SENIOR OFFICER Medication approved and signed per standing order protocol. OR OFFICER * Telephone Encounter - Anastasiya Galicia - 07/04/2020 10:40 AM SENIOR OFFICER Pt is going to be out on and is leaving to go out of town early tomorrow morning. Pt would like to pick this up before he leaves. Rx pended for your review and approval. Thank you. OR OFFICER * Telephone Encounter - Va Wasserman CMA - 07/04/2020 10:28 AM SENIOR OFFICER Rerouting OR OFFICER documented in this encounter Plan of Treatment Not on file documented as of this encounter Visit Diagnoses Diagnosis Hypertension, unspecified type- Primary documented in this encounter Additional Health Concerns Assessment Noted Time PHQ-9 Depression Total Score: 0 03/02/20 20 7:00 AM CDT documented as of this encounter Care Teams Brake Drum Molder Relationship Specialty Start Date End Date Kofi Zamora PAC PCP - General Physician Appliance Repairer 03/02/20 10/14/21 Mary Grace Harris APRN, MACHINE SPREADER [address] [place] [address] PCP - General Advanced Practice Nurse 10/15/21 documented as of this encounter
--- OUTSIDE RECORDS SUMMARY | 2025-05-14 09:52 | XMS_ITS | Data Portability ---
Author Organization [place] [facility], Main Office Address [address] [place] [address] Assessment Encounter Date Assessment Date Assessment LastModified by Organization Details LastModified Time 02/05/2023 02/05/2023 Call office if worse, ER if life-threatening illness RTC in 6 months and p.r.n. He voices understanding of plan and agrees [email or web address] Not available 02/05/2023 14:05:59 07/01/2023 07/01/2023 WEA- 07/01/23 Call office if worse, ER if life-threatening illness RTC in 6 months and p.r.n.- he plans transfer to a PCP in [place] He voices understanding of plan and agrees [email or web address] Not available 07/01/2023 12:00:26 Plan of Treatment Reminders Order Date Submit Date Provider Last Modified By Organization Details Last Modified Time Details Appointments None recorded. Lab CBC w/ auto diff 2024 025 [facility], [address] [place], [address], 5 08:43:24 lipid panel, serum 2024 025 [facility], [address] [place], [address], 5 08:43:24 CMP, serum or plasma 2024 025 [facility], [address] [place], [address], 5 08:43:25 vitamin D, 25-hydroxy, total, serum 2024 025 [facility], [address] [place], [address], 5 08:43:25 HbA1c (hemoglobin A1c), blood 2024 025 [facility], [address] [place], [address], 5 08:43:25 hepatic function panel, serum 2024 025 [facility], [address] [place], [address], 5 08:43:24 CMP, serum or plasma 2022 023 [email or web address], [address], [place], [address], 4 12:54:07 CBC w/ auto diff 2022 023 [email or web address], [address], [place], [address], 4 12:54:07 lipid panel, serum 2022 023 [facility], [address], [place], [address], 3 11:53:38 HbA1c (hemoglobin A1c), blood 2022 023 [facility], [address], [place], [address], 3 11:53:38 CMP, serum or plasma 2022 023 [facility], [address], [place], [address], 11:53:38 CBC w/ auto diff 2022 023 [facility], [address], [place], [address], 11:53:38 Referral None recorded. Procedures None recorded. Surgeries None recorded. Imaging None recorded. Medication Orders lisinopril 10 mg tablet 2024 025 [facility], [address] [place], [address], 5 12:47:38 Mounjaro 2.5 mg/0.5 mL subcutaneou s pen injector 2024 025 [email or web address] 3 [facility], [address] [place], [address], 5 15:33:28 lisinopril 10 mg tablet 2022 023 [facility], [address] [place], [address], 11:09:45 lisinopril 10 mg tablet 2022 023 [email or web address] [facility], [address] [place], [address], 14:00:42 Patient TargetsNo targets recorded. Patient Instructions Encounter Date Encounter Id Patient Instructions Last Modified By Organization Details Last Modified Time 07/01/2023 [id number] INFLUENZA VACCIN E Recommended today, but patient declined TD/TDAP Patient will get at local pharmacy/health department COLORECTAL SCREENING No screening necessary until age 45 DEPRESSION SCREENING Negative BMI Overweight Continue healthy eating & exercise NUTRITION Continue healthy eating & exercise PHYSICAL ACTIVITY Need more activity minimum of 30-40 minutes of activity that causes mild breathlessness/da y VISION Recommended today ALCOHOL USE Occasional/Social Use TOBACCO USE current tobacco use Patient is not interested in smoking cessation at this time- Handout given GLUCOSE SCREENING Not needed LIPID SCREENING Not needed [email or web address] Not available 07/01/2023 12:01:35 Reason for Referral None Reported. Results Created Date Observation Date Name Description Value Unit Range Abnormal Flag Note LastModifiedBy Organization Detail LastModifiedTime 04/11/2004/11/2025 XR, abdom en No observ ation record ed. [address] [place], [address], 04/12/2025 10:22:51 04/11/2004/11/2025 XR, thora cic spine , 3 view No observ ation record ed. [address] ([facility] [employer]) [address] [place], [address], 04/12/2025 10:22:41 05/02/20 25 04/11/2025 XR, abdom en No observ ation record ed. [address] [place], [address], 05/02/2025 12:37:19 05/02/2004/11/2025 XR, thora cic spine , 3 view No observ ation record ed. [address] ([employer]) [address] [place], [address], 05/02/2025 11:09:40 Result Notes None recorded. Problems Name Problem SNOMED Code Status Onset Date Resolution Date Notes Provider Name and Address Organization Details Recorded Time Essential hypertension 02885269 Active 2022 BAUTISTA Newman [address], [address], [facility] 3 12:41:31 Nicotine dependence 47215224 Active 2022 BAUTISTA Newman [address], [address], [facility] 3 14:06:35 Liver enzymes level above reference range 687755361 Active 2022 Crystal Maradiaga MA null, [facility] 3 11:18:30 Chest pain 48082820 Active 2022 SHRAVAN Newman-Sherif [address], [address], [place], [address], [facility] [employer] [facility] 3 10:58:36 Chronic dental pain Active 2024 SHRAVAN Serrano-C [address], [address], [place], [address], [facility] [employer] [facility] 5 10:24:50 Pain due to dental trauma Active 2024 SHRAVAN Serrano-Sherif [address], [address], [place], [address], [facility] [employer] [facility] 5 10:25:23 Acute thoracic back pain 934937508 Active 2024 SHRAVAN Serrano-C [address], [address], [place], [address], [facility] [employer] [facility] 5 10:23:54 Problem Notes None recorded. Procedures Surgical History Date Name Laterality Status Provider Name and Address Organization Details Recorded Time reconstruction of facial bones completed Crystal Maradiaga MA [facility] [employer] [facility] 02/05/2023 12:05:48 Lithotripsy completed Crystal Maradiaga MA [facility] 02/05/2023 12:06:05 Imaging Results None recorded. Procedure Notes None recorded. Medical Equipment None Reported. Allergies No known drug allergies Medications Name Sig Start Date Stop Date Status Note LastModified by Organization Details LastModified Time cyclobenzap rine 10 mg tablet TAKE 1 TABLET BY MOUTH THREE TIMES DAILY NEEDED active Not Available Not Available No t Available amoxicillin 500 mg capsule TAKE 2 CAPSULES BY MOUTH EVERY 12 HOURS active Not Available Not Available No t Available azithromyci n 250 mg tablet TAKE 2 TABLETS (500 MG) BY ORAL ROUTE ONCE DAILY FOR 1 DAY THEN 1 TABLET (250 MG) BY ORAL ROUTE ONCE DAILY FOR 4 DAYS active Not Available Not Available No t Available ibuprofen 800 mg tablet Take 1 tablet 3 times a day by oral route as needed. active Not Available Not Available No t Available hydrocodone 5 mg-acetamin ophen 325 mg tablet TAKE 1 TABLET BY MOUTH EVERY 6 HOURS NEEDED FOR PAIN active Not Available Not Available No t Available prednisone 20 mg tablet TAKE 2 TABLETS BY MOUTH ONCE DAILY IN THE MORNING WITH BREAKFAST FOR 5 DAYS 08/26 completed Not Available Not Available Not Available tramadol 50 mg tablet Take 1 tablet every 8 hours by oral route as needed, for severe pain. active Not Available Not Available No t Available lisinopril 10 mg tablet TAKE 1 TABLET BY MOUTH ONCE DAILY active Not Available Not Available No t Available hydrochloro thiazide 25 mg tablet TAKE 1 TABLET BY MOUTH ONCE DAILY active Not Available Not Available No t Available Mounjaro 2.5 mg/0.5 mL subcutaneou s pen injector INJECT 1 SYRINGE SUBCUTANE OUSLY ONCE A WEEK 04/11 completed Not Available Not Available Not Available Vitals Date Recorded Body weight Body mass index (BMI) Body height Provider Name and Address Organization Details Last Updated DateTime 08/26/2024 20329.32 g 30.7 kg/m2 180.34 cm BAUTISTA Serrano [address] [facility] [address], [place], [address], [facility] [employer] [facility] 08/26/2024 12:32:50 Date Recorded Body temperature Heart rate Oxygen saturation Oxygen saturation in Arterial blood by Pulse oximetry Systolic And Diastolic Provider Name and Address Organization Details Last Updated DateTime 5 97.6 [degF] 87 /min 99 % 99 % 142/88 mm[Hg] Yadira Ferguson RN [facility] [employer] [facility] 5 12:30:56 Date Recorded Body weight Body mass index (BMI) Body height Body temperature Heart rate Oxygen saturation Oxygen saturation in Arterial blood by Pulse oximetry Systolic And Diastolic Provider Name and Address Organization Details Last Updated DateTime 3 91197.1 7 g 29.7 kg/m2 180.34 cm 98.3 [degF] 88 /min 97 % 97 % 128/84 mm[Hg] Crystal Maradiaga MA [facility] [employer] [facility] 3 12:08:47 Date Recorded Body height Body mass index (BMI) Body weight Body temperature Heart rate Oxygen saturation Oxygen saturation in Arterial blood by Pulse oximetry Systolic And Diastolic Provider Name and Address Organization Details Last Updated DateTime 3 180.34 cm 29.4 kg/m2 86108.9 9 g 98.1 [degF] 108 /min 98 % 98 % 162/92 mm[Hg] Crystal Maradiaga MA [facility] [employer] [facility] 3 10:56:10 Social History Question Answer Notes LastModified by Organizat ion Details LastModified Time Tobacco Smoking Status Current Every Day Smoker Crystal Maradiaga MA null, [facility] [employer] [facility] 02/05/2023 12:01:21 What Is Your Level Of Caffeine Consumption? [...] Was Ill? No Information not available 02/05/2023 What Type Of Diet Are You Following? REGULAR Information not available 02/05/2023 What Is The Highest Grade Or Level Of School You Have Completed Or The Highest Degree You Have Received? [id number] Information not available 02/05/2023 Have There Been Any Changes To Your Family Or Social Situation? No Information not available 02/05/2023 What Is The Fluoride Status Of Your Home? Unknown Information not available 02/05/2023 Are There Any Guns Present In Your Home? Yes Information not available 02/05/2023 Do You Use Insect Repellent Routinely? No Information not available 02/05/2023 Where Do You Live? [place]House Information not available 02/05/2023 What Was The [...] PPD Information not available 02/05/2023 Do You Use Sunscreen Routinely? No Information not available 02/05/2023 Have You Recently Traveled Abroad? No Information not available 02/05/2023 Do You Have Any Dietary Restrictions? No Information not available 02/05/2023 Sex: Unknown Functional Status Question Answer Note LastModified by Organization Details LastModified Time Do you use any illicit or recreational drugs? canabis ocassionally Information not available 02/05/2023 Do you or have you ever used any other forms of tobacco or nicotine? Yes Information not available 02/05/2023 What is your level of alcohol consumption? Occasional Information not available 02/05/2023 Are you currently employed? 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 Current user of electronic cigarettes Information not available 02/05/2023 What is your exercise level? Occasional Information not available 02/05/2023 Mental Status Question Answer Note LastModified by Organization D etails LastModified Time Do you feel stressed (tense, restless, nervous, or anxious, or unable to sleep at night)? [id number] Information not available 02/05/2023 Family History Relationship Description Onset Age of this Age Resolved Age Notes LastModified by Organization Details LastModified Time Mother Malignant neoplasm of skin Not available 2022 11:58:38 Paternal Grandmother Malignant neoplasm of lung Not available 2022 11:59:01 Paternal [...] HEARING PROBLEMS N MUMPS N SHINGLES N DEPRESSION (INCLUDING POST ) N BOWEL PROBLEMS N FAILED BACK SYNDROME N STROKE/TIA N ULCERS N BENIGN PROSTATIC HYPERPLASIA N MEASLES N HYPOTENSION N MYOCARDIAL INFARCTION N OBESITY N GERD/NAUSEA N ANEURYSM N URINARY/BLADDER/KIDNEY PROBLEMS N CORONARY ARTERY DISEASE (CAD) N Do you have Advance directive? N ADDICTION CONCERNS N Impotence N ENDOMETRIOSIS N USE OF BLOOD THINNERS N SKIN PROBLEMS N GASTROINTESTINAL DISORDER N PERIPHERAL VASCULAR DISEASE N MUSCLE,JOINT OR BONE PROBLEMS N GASTROINTESTINAL BLEEDING N BLOOD CLOTS N ASTHMA N CATARACTS N Abdominal Pain N ERECTILE DYSFUNCTION N ARTERIAL INSUFFICIENCY N VARICOSITIES N GI PROBLEMS N Low Testosterone N INFERTILITY N AIDS/HIV N CHEMOTHERAPY / RADIATION N LIVER DISEASE N MALE HYPOGONADISM N HYPERTENSION Y Deficiency N TOURETTE'S N ANXIETY DISORDER N BLOOD TRANSFUSION N ANEMIA/BLOOD DISORDER N CHRONIC EAR INFECTIONS N TUBERCULOSIS N GLAUCOMA N FOOT PROBLEM N DIVERTICULITIS N SLEEP APNEA N CHICKENPOX N ALLERGIES/HAYFEVER N BACK INJECTIONS N INFECTIOUS DISEASE N PROSTATE N HEART ARRHYTHMIA N ESRD N INSOMNIA N HIGH CHOLESTEROL / HYPERLIPIDEMIA N EYE PROBLEMS N HYPERTHYROIDISM N PVD N EDEMA N CHRONIC PAIN SYNDROME N HYPOTHYROIDISM N CAROTID BLOCKAGE N CONSTIPATION N BACK / NECK PROBLEMS N HAVE YOU BEEN HOSPITALIZED OR SEEN IN [facility] ER IN THE PAST YEAR ? N ATHEROSCLEROSIS [...] N ALZHEIMER'S DISEASE N Brain Problems N DEMENTIA N HERPES N SEIZURES/EPILEPSY N HEADACHES/MIGRAINES N VASCULAR DISEASE N PACEMAKER N DIZZINESS N HEART DISEASE/HEART PROBLEMS N KIDNEY DISEASE N MULTIPLE SCLEROSIS N NEUROPSYCHOLOGICAL N CANCER: SPECIFY N CARDIAC ARRHYTHMIA N ATRIAL FIBRILLATION N Gall Stones N PULMONARY EMBOLISM N AUTOIMMUNE DISEASE N Past Encounters Encounter ID Performer Location Encounter Start Date Encounter Closed Date Diagnosis/Indication Diagnosis SNOMED-CT Code Diagnosis ICD10 Code Diagnosis IMO Codes Diagnosis Note [id number] Jose M nunn MD [facility] [address] [facility] , [place] [address] 02/05/2023 11:51:36 02/05/2023 12:44:05 Adult health examination 718000395 Z00.00 Cholesterol screening 27 0490657 Z13.220 Diabetes m ellitus screening 910455869 Z13.1 Essential hypertension 43148296 I10 On lisinopril Chest pain 51047050 R07. 9 1 episode approximat courtney 2 months ago Declines any EKG or workup today Call office if recurs, ER precaution s Nicotine dependence 5629 4008 F17.200 3 min spent with patient discussing risks, cessation options. Patient encouraged to quit. [id number] Jose M nunn MD [facility] Internal Med [address] [facility] [place] [address] 07/01/2023 10:49:03 07/01/2023 11:11:03 Essential hypertension 42729765 I10 On lisinopril elevated today but he forgot to take his meds today- he does have a BP cuff at home, he will take his meds, then take his BP and call us with the reading ER precaution s Adult heal th examination 013744247 Z00.01 Nicotine dependence 5629 4008 F17.200 3 min spent with patient discussing risks, cessation options. Patient encouraged to quit. Liver enzy mes level above reference range 813317573 R74.8 recheck CMP Depression screening 171 086310 Z13.31 Body mass index 25-29 - overweight 144128747 Z68.29 recommend healthy, well balanced mealsfocus on lean meats, fresh vegetables , fresh fruits, whole grainsredu ce fast/proce ssed foods or eating out to no more than 1-2 times per weekaim to get 30 min of exercise most days of the week- walking is a great choicealso recommend resistance training 2-3 times per week [id number] BAUTISTA Serrano [facility] Primary Care [facility] [address] [facility] [address] [place] [address] 08/26/2024 12:26:58 08/26/2024 12:49:28 Adult health examination 670470271 Z00.00 Discussed medication compliance and routine follow up.Discuss ed healthy diet and routine exercise.R eviewed vaccine records and made recommenda tions as needed.Enc ouraged annual eye and dental exams, as well as twice yearly dental cleanings. Will check screening labs as listed below. Essential hypertension 11144800 I10 142/88 initialDis cussed DASH diet and routine exercise.W ill refill meds as listed below. Liver enzy mes level above reference range 107039993 R74.8 Dietary ma nagement surveillance 869583535 Z71.3 Health Concerns Section Related Observation LastModified by Organization Detai ls LastModified Time None Recorded Concern Status LastModified by Organization Details LastModified Time None Recorded Advance Directives Directive None Recorded Payers Insurance Date Sequence Insurance Name Policy Number Policy Tobar Covered Member ID Tobar Member ID Guarantor Name 01/27/2025 1 [id number] 000 Helder C Head [id number] Helder Head Notes Date Note Type Note Provider Name and Address Organization Details Recorded Time 02/05/2023 text/html Helder presents today to establish care. Previous PCP- [facility]. 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 He is due for labs. Ana Jefferson, SHRAVAN-C [address] [facility], [facility] [address], [place], [address], [facility] [facility] [employer] 02/05/2023 14:06:57 07/01/2023 text/html Helder presents today [...] is due for labs. BAUTISTA Newman [address], [place], [address], [facility] 07/01/2023 12:01:56 08/26/2024 text/html ROS as noted in the HPI Patient is a 33 year old male [...] orderedFlu- awareCovid- UTDTdap- aware BAUTISTA Serrano [address], [place], [address], [facility] 11/16/2024 08:37:30
--- OUTSIDE RECORDS SUMMARY | 2025-05-14 09:52 | XMS_ITS | Clinical Summary ---
Author Organization [facility] Address [address] [place] [address] Phone Care Team Providers Care Engine Turner Name Role Phone Mary Grace Harris APRN, [...] this topic Medical Devices Implanted Type Area Hydraulic Dredge Operator Device Identifier Shelf Expiration Date Model / Serial / Lot Stent Ureteral 6fr 2.1fr 26cm 2 Pigtail Curve 2 Durometer Taper Tip Loprfl Graduated [employer]is Ultra - [id number] Implanted:Qty : 1 on 08/22/2020 by Tori Lozoya MD at [facility] IMPLANT Right: Ureter [employer] 05/30/2023 [id number] / [id number] / [id number] Procedures Procedure Name Priority Date/Time Associated Diagnosis Comments HEPATITIS C ANTIBODY Routine 03/02/2020 8:44 AM CDT Preventative health care (Adult) from Last 3 Months or Most Recently Relevant to Health Maintenance Results * HEPATITIS C ANTIBODY (03/02/2020 8:44 AM CDT) hepatitis C antibody 0.14 <1 S/CO 03/02/2020 9:08 PM CDT [facility] Comment: Signal/Cutoff ratio < 0.79 is Nondetected Signal/Cutoff ratio 0.80-0.99 is Grayzone Signal/Cutoff ratio > 0.99 is Detected Supplemental assays are recommended if signal/cutoff ratio is >/=1.00. Signal/cutoff ratio result >/= 5.00 is 97% predictive of positivity for recombinant immunoblot assay (RIBA) and will be reported to the [place] Department of Public Health as required. Blood Venipuncture / Unknown 03/02/2020 8:44 AM CDT 03/02/2020 8:44 AM CDT us Kofi Zamora PAC CHEMISTRY ORDERABLES Fin al Result [facility] [address] [place] [address], from Last 3 Months or Most Recently Relevant to Health Maintenance Insurance [facility] Care Teams Engine Turner Relationship Specialty Start Date End Date Mary Grace Harris APRN, SALES AND PRODUCTION MANAGER [address] [place] [address] PCP - General Advanced Practice Nurse 10/15/21
[2025-05-14 09:59] LABS: Alanine Aminotransferase > 750 U/L (6-50); Albumin Level 4.8 g/dL (3.5-5.1); Alkaline Phosphatase 201 U/L (38-126); Anion Gap 8 mmol/L (4-12); Aspartate Amino Transferase 481 U/L (17-59); Bilirubin,Total 6.8 mg/dL (0.2-1.3); Blood Urea Nitrogen 12 mg/dL (9-20); Calcium 9.7 mg/dL (8.4-10.2); Carbon Dioxide 31 mmol/L (22-30); Chloride 103 mmol/L (98-107); Estimated CRCL calculation 90 ml/min; Estimated Glomerular Filt Rate > 60; Glucose 93 mg/dL (65-110); Lipase 76 U/L (23-300); Osmolality Calculated 293 mOsm/kg (285-295); Potassium 4.5 mmol/L (3.4-5.0); Sodium 142 mmol/L (137-145); Total Protein 9.5 g/dL (6.3-8.2)
[2025-05-14 10:18] LABS: Appearance Urine Clear (Clear); Glucose Urine UA Trace (Negative); Leukocyte Esterase Ur Trace LEU/UL (Negative); Nitrate Urine Positive (Negative); Specific Grav Ur 1.020 (1.010-1.020)
[2025-05-14 10:24] LABS: Add Urine Microscopic? YES
[2025-05-14] MEDS: cefTRIAXone 1 GM in SODIUM CHLORIDE 0.9% IV 50 ML 100 ML IVPB (10:45)
[2025-05-14 11:08] VITALS: BP 130/93; PULSE 73; RESP 20; O2SAT 100
== END 2025-05-14 11:10 | disposition short-term general hospital (02) ==
PROVIDERS: Emergency Provider Emergency Medicine; PCP Nurse Practitioner Family
DX: E80.7 Disorder of bilirubin metabolism, unspecified (principal); N20.1 Calculus of ureter; R79.89 Other specified abnormal findings of blood chemistry; I10 Essential (primary) hypertension; Z79.899 Other long term (current) drug therapy
CPT/HCPCS: 36415; 74176; 80053; 81001; 83605; 83690; 85025; 87086; 96361; 96365; 99285; J0696; J7030

== ENCOUNTER 2025-05-14 11:46 | Observation (INO) | payer BC, SELFPAY ==
--- OUTSIDE RECORDS SUMMARY | 2010-12-05 03:30 | XMS_ITS | Continuity of Care Document ---
Author Organization [facility] Address [address] [place] [phone] Phone Care Team Providers Care Pressure Tester Name Role Phone Betito Petersen DDS Unavailable Unavailable Procedures Procedure Date Exam Limited Problem Focused Xray Periapical First Film Advance Directives Directive Yes / No Effective Date File Name No Information Encounters Encounter Description Practice Location Reason(s) For Visit Diagnoses Date Provider [facility], [address] [place] [address], [id number], tel:[phone] No Information [address] [address] [place], [place], [id number]. tel:[phone] Family History Family Member Type Diagnosis Age [...]
--- OUTSIDE RECORDS SUMMARY | 2010-12-05 03:30 | XMS_ITS | Continuity of Care Document ---
Author Organization [facility] Address [address] [place] [phone] Phone Care Team Providers Care Bsw Name Role Phone Betito Petersen DDS Unavailable Unavailable Procedures Procedure Date Exam Limited Problem Focused Xray Periapical First Film Advance Directives Directive Yes / No Effective Date File Name No Information Encounters Encounter Description Practice Location Reason(s) For Visit Diagnoses Date Provider [facility], [address] [place] [address], [id number], tel:[phone] No Information [address] [address] [place], [place], [id number]. tel:[phone] Family History Family Member Type Diagnosis Age [...]
--- NOTE | ~2025-05-14 | MR_ITS ---
EXAMINATION: MR MRCP wo/w con/w 3D wo ind DATE: 05/15/2025 13:11 INDICATION: Chronic cholecystitis. TECHNIQUE: Magnetic resonance imaging (MRI) of the abdomen was performed without and with 16 mL MultiHance intravenous contrast. Sequences included coronal T2- weighted FS FSE, coronal T2-weighted FSE, axial T1-weighted LAVA, coronal FS FIESTA, axial dual-echo T1-weighted SPGR, coronal lava-FLEX, sagittal T2- weighted FSE, axial T2-weighted FSE, and axial DWI. Thick-slab T2-weighted FSE images were obtained for magnetic resonance cholangiopancreatography (MRCP). Maximum intensity projection 3-D reconstructions of the volumetric data were created by the technologist. Postcontrast sequences included coronal LAVA-flex and time course of axial T1-weighted LAVA. COMPARISON: CT abdomen and pelvis 05/14/2025, 08/14/2020, abdomen ultrasound 05/14/2025 FINDINGS: ABDOMEN MRI: The liver and spleen are normal. There are gallstones in the gallbladder which is normal in size. Gallbladder wall thickening is noted. The pancreas, adrenal glands, and kidneys are normal. There are no dilated loops of bowel. There are no pathologically enlarged lymph nodes. There is no ascites. ABDOMEN MRCP: The common duct is normal and measures 3 mm. IMPRESSION: 1. Cholelithiasis. Gallbladder wall thickening may be seen with chronic cholecystitis, interstitial edema, or chronic liver disease Reviewed, dictated and finalized at location E. OF PARTNER DEVELOPMENT IMPRESSION: 1. Cholelithiasis. Gallbladder wall thickening may be seen with chronic cholecy stitis, interstitial edema, or chronic liver disease
--- NOTE | ~2025-05-14 | CT_ITS ---
EXAMINATION: CT abdomen pelvis w con DATE: 05/16/2025 19:46 INDICATION: Intractable vomiting. Obstruction. TECHNIQUE: Computed tomography (CT) of the abdomen and pelvis was performed with 100 cc Omnipaque 350 intravenous contrast. The dose-length product was 332.06 mGy-cm. Automated exposure control and iterative reconstruction technique were employed. COMPARISON: CT dated 05/14/2025. FINDINGS: Interval cholecystectomy. There is fluid in the gallbladder fossa, likely postsurgical. There is free intraperitoneal air, consistent with recent surgery. Nonobstructive bowel gas pattern. Fatty infiltration of the liver. The spleen, pancreas, adrenal glands and kidneys are unremarkable. There is a punctate 1 mm nonobstructing right renal stone. No significant vascular abnormality. No lymphadenopathy. Small amount of free fluid in the pelvis.0 no acute osseous abnormality. Normal appendix. No acute osseous abnormality. IMPRESSION: 1. Free air and fluid in the gallbladder fossa, consistent with recent cholecystectomy 2: Punctate 1 mm nonobstructing right renal stone. Reviewed, dictated and finalized at location O. ITION SERVICES ASSOCIATE IMPRESSION: 1. Free air and fluid in the gallbladder fossa, consistent with recent cholecys tectomy 2: Punctate 1 mm nonobstructing right renal stone.
--- NOTE | ~2025-05-14 | US_ITS ---
ULTRASOUND ABDOMEN LIMITED (RIGHT UPPER QUADRANT) Clinical History: pain, transaminitis with hyperbilirubinemia Comparison: CT abdomen pelvis today Technique: Right upper quadrant sonography Findings: Liver: Enlarged. Echogenic. No intrahepatic biliary ductal dilatation. Normal hepatopedal flow main portal vein. Common Duct: Normal caliber. 5 mm. Gallbladder: Stones. Wall thickening. No pericholecystic fluid. Negative sonographic Lauren's sign per technologist report Pancreas: Unremarkable. Right kidney: Unremarkable. Retrohepatic IVC: Unremarkable. IMPRESSION: 1. Chronic cholecystitis possible. Consider HIDA scan if clinical ambiguity. 2. Hepatic steatosis and/or hepatocellular disease. Reviewed, dictated and finalized at location R.
--- OUTSIDE RECORDS SUMMARY | 2025-05-14 11:47 | XMS_ITS | Encounter Summary ---
Author Organization [facility] Address [address] [place] [address] Phone Care Team Providers Care Primer Waterproofing Machine Adjuster Name Role Phone Kofi Zamora Primary Care Provider Mary Grace Durant APRN, [place] Primary Care P [email or web address] Reason for Visit * Reason Comments Medication Refill lisinopril Encounter Details Date Type Department Care Team (Late st Contact Info) Description 07/04/2020 Refill [facility] Primary Care - [facility] [address] [place] [address] Kofi Zamora, KATE Medication Refill [...] Clari Rowell RN - 07/04/2020 10:53 AM ASSAYER Medication approved and signed per standing order protocol. YER * Telephone Encounter - Anastasiya Galicia - 07/04/2020 10:40 AM ASSAYER Pt is going to be out on and is leaving to go out of town early tomorrow morning. Pt would like to pick this up before he leaves. Rx pended for your review and approval. Thank you. YER * Telephone Encounter - Va Wasserman CMA - 07/04/2020 10:28 AM ASSAYER Rerouting YER documented in this encounter Plan of Treatment Not on file documented as of this encounter Visit Diagnoses Diagnosis Hypertension, unspecified type- Primary documented in this encounter Additional Health Concerns Assessment Noted Time PHQ-9 Depression Total Score: 0 03/02/20 20 7:00 AM CDT documented as of this encounter Care Teams Primer Waterproofing Machine Adjuster Relationship Specialty Start Date End Date Kofi Zamora PAC PCP - General Physician Vice Chair 03/02/20 10/14/21 Mary Grace Harris APRN, SITE WORKER [address] [place] [address] PCP - General Advanced Practice Nurse 10/15/21 documented as of this encounter
--- OUTSIDE RECORDS SUMMARY | 2025-05-14 11:47 | XMS_ITS | Clinical Summary ---
Author Organization [facility] Address [address] [place] [address] Phone Care Team Providers Care Neurology Teacher Name Role Phone Mary Grace Harris APRN, [...] this topic Medical Devices Implanted Type Area Gasateria Attendant Device Identifier Shelf Expiration Date Model / Serial / Lot Stent Ureteral 6fr 2.1fr 26cm 2 Pigtail Curve 2 Durometer Taper Tip Loprfl Graduated [employer] Ultra - [id number] Implanted:Qty : 1 on 08/22/2020 by Tori Lozoya MD at [facility] IMPLANT Right: Ureter [employer] 05/30/2023 [id number] / [id number] / [id number] Procedures Procedure Name Priority Date/Time Associated Diagnosis Comments HEPATITIS C ANTIBODY Routine 03/02/2020 8:44 AM CDT Preventative health care (Adult) from Last 3 Months or Most Recently Relevant to Health Maintenance Results * HEPATITIS C ANTIBODY (03/02/2020 8:44 AM CDT) hepatitis C antibody 0.14 <1 S/CO 03/02/2020 9:08 PM CDT [facility] Comment: Signal/Cutoff ratio < 0.79 is Nondetected Signal/Cutoff ratio 0.80-0.99 is Grayzone Signal/Cutoff ratio > 0.99 is Detected Supplemental assays are recommended if signal/cutoff ratio is >/=1.00. Signal/cutoff ratio result >/= 5.00 is 97% predictive of positivity for recombinant immunoblot assay (RIBA) and will be reported to the [place] Department of Public Health as required. Blood Venipuncture / Unknown 03/02/2020 8:44 AM CDT 03/02/2020 8:44 AM CDT us Kofi Zamora PAC CHEMISTRY ORDERABLES Fin al Result [facility] [address] [place] [address], from Last 3 Months or Most Recently Relevant to Health Maintenance Insurance [facility] Care Teams Neurology Teacher Relationship Specialty Start Date End Date Mary Grace Harris APRN, [place] [address] [place] [address] PCP - General Advanced Practice Nurse 10/15/21
[2025-05-14 11:59] VITALS: BP 149/93; PULSE 89; RESP 16; TEMP 36.6; O2SAT 100
--- OUTSIDE RECORDS SUMMARY | 2025-05-14 12:39 | XMS_ITS | Clinical Summary ---
Author Organization [facility] Address [address] [place] [address] Phone Care Team Providers Care Snuff Container Inspector Name Role Phone Mary Grace Harris APRN, [...] this topic Medical Devices Implanted Type Area Dental Patient Coordinator Device Identifier Shelf Expiration Date Model / Serial / Lot Stent Ureteral 6fr 2.1fr 26cm 2 Pigtail Curve 2 Durometer Taper Tip Loprfl Graduated [employer] - [id number] Implanted:Qty : 1 on 08/22/2020 by Tori Lozoya MD at [facility] IMPLANT Right: Ureter [employer] 05/30/2023 [id number] / [id number] / [id number] Procedures Procedure Name Priority Date/Time Associated Diagnosis Comments HEPATITIS C ANTIBODY Routine 03/02/2020 8:44 AM CDT Preventative health care (Adult) from Last 3 Months or Most Recently Relevant to Health Maintenance Results * HEPATITIS C ANTIBODY (03/02/2020 8:44 AM CDT) hepatitis C antibody 0.14 <1 S/CO 03/02/2020 9:08 PM CDT [facility] Comment: Signal/Cutoff ratio < 0.79 is Nondetected Signal/Cutoff ratio 0.80-0.99 is Grayzone Signal/Cutoff ratio > 0.99 is Detected Supplemental assays are recommended if signal/cutoff ratio is >/=1.00. Signal/cutoff ratio result >/= 5.00 is 97% predictive of positivity for recombinant immunoblot assay (RIBA) and will be reported to the [place] [facility] as required. Blood Venipuncture / Unknown 03/02/2020 8:44 AM CDT 03/02/2020 8:44 AM CDT us Kofi Zamora PAC CHEMISTRY ORDERABLES Fin al Result [facility] [address] [place] [address], from Last 3 Months or Most Recently Relevant to Health Maintenance Insurance [facility] Care Teams Snuff Container Inspector Relationship Specialty Start Date End Date Mary Grace Harris APRN, BOX CLOSING MACHINE OPERATOR [address] [place] [address] PCP - General Advanced Practice Nurse 10/15/21
--- OUTSIDE RECORDS SUMMARY | 2025-05-14 12:40 | XMS_ITS | Encounter Summary ---
Author Organization [facility] Address [address] [place] [address] Phone Care Team Providers Care Fence Erector Supervisor Name Role Phone Kofi Zamora Primary Care Provider Mary Grace Durant APRN, [place] Primary Care P wilbermya Reason for Visit * Reason Comments Medication Refill lisinopril Encounter Details Date Type Department Care Team (Late st Contact Info) Description 07/04/2020 Refill [facility] - [place] [address] [place] [address] Kofi Zamora, KATE Medication Refill [...] Clari Rowell RN - 07/04/2020 10:53 AM WHARF OPERATOR Medication approved and signed per standing order protocol. F OPERATOR * Telephone Encounter - Anastasiya Galicia - 07/04/2020 10:40 AM WHARF OPERATOR Pt is going to be out on and is leaving to go out of town early tomorrow morning. Pt would like to pick this up before he leaves. Rx pended for your review and approval. Thank you. F OPERATOR * Telephone Encounter - Va Wasserman CMA - 07/04/2020 10:28 AM WHARF OPERATOR Rerouting F OPERATOR documented in this encounter Plan of Treatment Not on file documented as of this encounter Visit Diagnoses Diagnosis Hypertension, unspecified type- Primary documented in this encounter Additional Health Concerns Assessment Noted Time PHQ-9 Depression Total Score: 0 03/02/20 20 7:00 AM CDT documented as of this encounter Care Teams Fence Erector Supervisor Relationship Specialty Start Date End Date Kofi Zamora PAC PCP - General Physician Notched Blade Loader 03/02/20 10/14/21 Mary Grace Harris APRN, BAND SPLITTER [address] [place] [address] PCP - General Advanced Practice Nurse 10/15/21 documented as of this encounter
--- NOTE | 2025-05-14 12:49 | ED.GENADULT ---
HPI - General Adult General Chief complaint: Recheck/Abnormal Lab/Rx Stated complaint: SENT FROM [place] FOR GALLBLADDER US Time Seen by Provider: 05/14/25 12:30 History of Present Illness HPI narrative: Patient is a 34-year-old male who presents ER from [facility] for evaluation of abnormal liver labs. He had an elevated bilirubin as well as AST and ALT. Patient has been having intermittent epigastric pain for last month going toward the back. Unsure if it is related to eating. He has not noticed any skin changes though he does have jaundice and scleral icterus here. Patient has had a 60 lb weight loss this year that was intentional. He had been on a semaglutide. Related Data Home Medications ?Medication ?Instructions ?Recorded ?Confirmed ?Last Taken ?Type lisinopril 10 mg tablet 10 mg PO DAILY 09/08/24 05/14/25 05/13/25 History cyclobenzaprine 10 mg tablet 10 mg PO Q8H PRN back pain 05/14/25 05/14/25 05/13/25 History Allergies Allergy/AdvReac Type Severity Reaction Status Date / Time No Known Allergies Allergy Verified 05/14/25 15:40 Review of Systems Review of Systems: All systems reviewed & are unremarkable except as noted in HPI and below Constitutional: Constitutional: Reports no additional constitutional complaints ENT: Reports system reviewed and no additional complaints, except as documented Cardiovascular: Cardiovascular: Reports no additional cardiovascular complaints Respiratory: Respiratory: Reports no additional respiratory complaints Gastrointestinal: Gastrointestinal: Reports no additional gastrointestinal complaints [facility] Past Medical History Medical History (Updated 05/14/25 @ 19:22 by Larry Nieto MD) Dental caries Hypertension Social History Social History Smoking packs per day: 1 Smoking cigarettes per day: 20.0 Smoking status: Current every day smoker Tobacco type: cigarettes Second hand tobacco smoke exposure: No Alcohol intake: current Substance use: current Substance use type: marijuana Last use: 05/14/25 @ 0700 Lack of Transportation: No Lack of Food: Never True Current Housing: I Have Housing Concerned About Future Housing: No Difficulty Paying Gas/Electric Bills: No Difficulty Paying for Meds: No Currently Unemployed: No Education: High School Diploma/GED Difficulty w/ Childcare or Family Care: No Spiritual care concerns: No Exam Narrative: GENERAL: Well-appearing, well-nourished, and in no acute distress. HEAD: Normocephalic, atraumatic. EYES: PERRL and EOMI. Scleral icterus ENT: Mucous membranes moist. CHEST: Clear to auscultation. No respiratory distress. HEART: Regular rate and rhythm. Normal peripheral pulses. ABDOMEN: Soft, nontender, nondistended. EXTREMITIES: Normal range of motion. No edema. SKIN: Warm, dry, mild jaundice. NEURO: Alert and oriented x3. PSYCH: Normal mood and affect. Course Course Emergency Course: Patient informed of results. GI consulted. Admit to hospitalist service. Already received Rocephin. Will require MRCP tomorrow. Vital Signs Vital signs: Vital Signs Temperature 97.9 F 05/14/25 11:59 Pulse Rate 89 05/14/25 11:59 Respiratory Rate 16 05/14/25 11:59 Blood Pressure 149/93 H 05/14/25 11:59 Pulse Oximetry 100 05/14/25 11:59 Oxygen Delivery Room Air 05/14/25 11:59 Temperature 97.9 F 05/14/25 11:59 Pulse Rate 85 05/14/25 13:57 Respiratory Rate 15 05/14/25 13:57 Blood Pressure 163/99 H 05/14/25 16:20 Pulse Oximetry 97 05/14/25 15:56 Oxygen Delivery Room Air 05/14/25 16:04 Medical Decision Making Differential Diagnosis Differential Diagnosis: Choledocholithiasis, cholecystitis, gallbladder/pancreatic mass, metastases Medical Records Medical records reviewed: Yes I reviewed the external patient's medical records. Vital Signs Vital Signs: Vital Signs Temperature 97.9 F 05/14/25 11:59 Pulse Rate 89 05/14/25 11:59 Respiratory Rate 16 05/14/25 11:59 Blood Pressure 149/93 H 05/14/25 11:59 Pulse Oximetry 100 05/14/25 11:59 Oxygen Delivery Room Air 05/14/25 11:59 Temperature 97.9 F 05/14/25 11:59 Pulse Rate 85 05/14/25 13:57 Respiratory Rate 15 05/14/25 13:57 Blood Pressure 163/99 H 05/14/25 16:20 Pulse Oximetry 97 05/14/25 15:56 Oxygen Delivery Room Air 05/14/25 16:04 Lab Data Labs: Lab Results 05/14/25 Range/Units 12:44 Lipase 72 (23-300) U/L Hepatitis A IgM Ab Negative (Negative) Hep Bs Antigen Negative (Negative) Hep B Core IgM Ab Negative (Negative) Hepatitis C Ab Screen Negative (Negative) Monoscreen Negative (Negative) Imaging Data Radiologist's impression: ITS Impressions Upper Quadrant Ultrasound 05/14/25 13:46 IMPRESSION: 1. Chronic cholecystitis possible. Consider HIDA scan if clinical ambiguity. 2. Hepatic steatosis and/or hepatocellular disease. Discharge Plan Discharge Clinical Impression: Cholecystitis, chronic, Common bile duct obstruction, Transaminitis, Hyperbilirubinemia Patient Disposition: Still a Patient Condition: Stable
[2025-05-14 12:58] LABS: Lipase 72 U/L (23-300)
[2025-05-14 13:29] LABS: Negative Monotest Control Negative (Negative); Positive Monotest Control Positive (Positive)
[2025-05-14 13:57] VITALS: PULSE 85; RESP 15; O2SAT 100
[2025-05-14 14:21] LABS: Hepatitis B Surface Antigen Negative (Negative)
[2025-05-14 14:27] LABS: HAV RESULT Negative (Negative); Hepatitis B Core IgM Result Negative (Negative)
--- NOTE | 2025-05-14 15:23 | P.HP_ITS ---
H&P: HPI History of Present Illness Date/Time: 05/14/25 15:23 Chief Complaint: Back pain pain Narrative: 34-year-old male who presented to outside hospital for hematuria and back pain. Lab work at the outside hospital showed total bili of 6.8, AST 481 ALT over 750, alkaline phos 201, patient was then transferred to [facility] for higher level of care and GI services. Patient states that the pain was acute in nature for several hours yesterday. On bedside exam patient has no abdominal pain. Patient has no other complaints at this time. UA shows dark orange urine negative for blood with urobilinogen 4.0 urine bilirubin 3+ and trace leukocyte esterase. CT of the abdomen and pelvis show nonspecific gallbladder wall thickening. Abdominal ultrasound show chronic cholecystitis and hepatic steatosis. GI was consulted plan on doing the MRCP tomorrow. Review of Systems Review of Systems: 12 systems were reviewed and are negativ e except for as per HPI. [facility] Past Medical History Medical History (Updated 05/14/25 @ 19:22 by Larry Nieto MD) Dental caries Hypertension Social History Social History Smoking packs per day: 1 Smoking cigarettes per day: 20.0 Smoking status: Current every day smoker Tobacco type: cigarettes Second hand tobacco smoke exposure: No Alcohol intake: current Substance use: current Substance use type: marijuana Last use: 05/14/25 @ 0700 Lack of Transportation: No Lack of Food: Never True Current Housing: I Have Housing Concerned About Future Housing: No Difficulty Paying Gas/Electric Bills: No Difficulty Paying for Meds: No Currently Unemployed: No Education: High School Diploma/GED Difficulty w/ Childcare or Family Care: No Spiritual care concerns: No Meds Home Medications and Allergies Home Medications ?Medication ?Instructions ?Recorded ?Confirmed ?Type lisinopril 10 mg tablet 10 mg PO DAILY 09/08/2408/07 History cyclobenzaprine 10 mg tablet 10 mg PO Q8H PRN back tarun n 05/14/25 05/14/25 History Allergies Allergy/AdvReac Type Severity Reaction Status Date / Time No Known Allergies Allergy Verified 05/14/25 15:40 Vital Signs Vital Signs - 24 hr 05/14/25 11:59 05/14/25 13:57 Temperature 97.9 F Pulse Rate 89 85 Respiratory Rate 16 15 Blood Pressure 149/93 H Pulse Oximetry 100 100 Oxygen Delivery Room Air Exam Narrative: General: well appearing, appears stated age. HEENT: normocephalic, atraumatic. Mucous membranes moist. EOMI, PERRLA, bilateral sclera anicteric, no conjunctival injection. Neck supple without JVD, lymphadenopathy, or bruit. Respiratory: clear bilaterally. No rales/rhonic/wheezes. Cardiovascular: Regular rate and rhythm, normal S1-S2. No murmurs, rubs, or clicks. PMI is nondisplaced, capillary refill less than 3 second. Abdomen: Soft, round, no pulsatile masses, nondistended and nontender. No rebound, no guarding. Bowel sounds present to all four quadrants. No high pitch or tinkling sounds, resonant to percussion. Extremities: No cyanosis, clubbing, or edema present. Pulses are palpable 2/2. Active ROM to all four extremities. Neuro: Alert and orientated x 4. PERRLA. Cranial nerves 2-12 intact without focal deficit. Skin: Warm, dry, and intact, without rash, erythema, or lesion. Psych: pleasant, cooperative, normal speech, normal affect, no hallucinations, no dysarthia Assessment and Plan Assessment and plan (1) Elevated bilirubin: Code(s): R17 - Unspecified jaundice Status: Acute Assessment and Plan: Ultrasound shows chronic cholecystitis and hepatic steatosis, possible choledocholithiasis GI consulted Plan for MRCP in the morning Patient states that his pain free at this time, stone may have passed NPO midnight IVF (2) Abnormal LFTs (liver function tests): Code(s): R79.89 - Other specified abnormal findings of blood chemistry Status: Acute Assessment and Plan: See above (3) Calculus, ureteral: Code(s): N20.1 - Calculus of ureter Status: Acute Assessment and Plan: 1 mm non obstruction stone Stone should pass on its own Pain management (4) Urinary tract infection: Qualifiers: Hematuria presence: with hematuria Urinary tract infection type: site unspecified Qualified Code(s): N39.0 - Urinary tract infection, site not specified; R31.9 - Hematuria, unspecified Code(s): N39.0 - Urinary tract infection, site not specified Status: Acute Assessment and Plan: UA negative for blood IV Rocephin Culture and sensitivity pending (5) Hypertension: Code(s): I10 - Essential (primary) hypertension Status: Acute Assessment and Plan: Restart home lisinopril Quality VTE Prophylaxis VTE prophylaxis: mechanical ordered Hospitalist MIPS Advance Care Plan I have confirmed that the patient's Advanced Care Plan is present, code status is documented, or surrogate decision maker is listed in patient medical record.: Yes Medication Reconciliation I have utilized all available resources to obtain, update and review the patients current medications (includes all prescriptions, OTC, herbals, cannabis, and nutritional supplements).: Yes
--- NOTE | 2025-05-14 15:34 | ADMGEN ---
This patient, Helder Maradiaga, was admitted to Medical Room 341-01. Patient/family oriented to hospital policies and general routines including ID bracelet, bed and alarms, visiting hours, pain management, procedures, bathroom and other care routines, personal items, smoking policy, room service/diet, and visiting hours. Information on how to activate the Rapid Response Team has been discussed. Patient/Family are encouraged to report perceived risks to care and to ask questions if they do not understand what they are told or what they should do.
[2025-05-14 15:40] VITALS: BMI 24.6
[2025-05-14 15:56] VITALS: O2SAT 97
[2025-05-14 16:20] VITALS: BP 163/99
[2025-05-14] MEDS: SODIUM CHLORIDE 0.9% IV 1,000 ML 125 ML IV CONT (16:38)
[2025-05-14 20:29] VITALS: BP 144/96; PULSE 81; RESP 16; TEMP 36.4; O2SAT 100
--- NOTE | 2025-05-15 01:01 | PC.NURSE ---
Daylight Savings Time For Daylight Savings Time Ending in the Fall - Clocks are moved back. For Daylight Savings Time Beginning in the Spring - Clocks are moved ahead. For [facility], the time of change occurs at 0200 hrs. Time is taken from the cafe server. This entry on the patient's chart recognizes the change in time reflected during documentation. Example: 2 entries for vital signs may be charted for 0200 hrs.
[2025-05-15] MEDS: SODIUM CHLORIDE 0.9% IV 1,000 ML 125 ML IV CONT ×2 (01:08→06:21)
[2025-05-15 04:37] VITALS: BP 146/96; PULSE 81; RESP 14; TEMP 36.6; O2SAT 99
--- NOTE | 2025-05-15 07:20 | P.PNIM_ITS ---
Progress Note: A&P Assessment and Plan (1) Abnormal LFTs (liver function tests): Code(s): R79.89 - Other specified abnormal findings of blood chemistry Status: Inactive Assessment and Plan: LFTs significantly elevated on admission: tot bili 6.8, AST 481, ALT >750, and alk phos 201. CK umremarkable. CT abdomen/pelvis: Nonspecific gallbladder wall thickening. Abdomen Ultrasound: chronic cholecystitis as well as hepatic steatosis and/or hepatocellular disease Patient reports he ate bbq ribs on friday and had increased epigastric/ruq pain then vomiting before pain subsided. Concern for choledocholithiasis based on imaging and laboratory results, although a stone that has already passed is also a likely possibility. LFTs downtrending Currently asymptomatic GI consulted MRCP ordered, further recommendations per GI to be obtained following imaging results. (2) Calculus, ureteral: Code(s): N20.1 - Calculus of ureter Status: Inactive Assessment and Plan: CT abdomen/pelvis: 1 mm non obstruction stone without hydronephrosis Stone should pass on its own, strain urine Renal function wnl Pain management: IV morphine q4prn which has not been needed thus far (3) Urinary tract infection: Qualifiers: Hematuria presence: with hematuria Urinary tract infection type: site unspecified Qualified Code(s): N39.0 - Urinary tract infection, site not specified; R31.9 - Hematuria, unspecified Code(s): N39.0 - Urinary tract infection, site not specified Status: Inactive Assessment and Plan: - UA: dark orange with 1+ protein, trace glucose, 1+ ketones, positive nitrates, 3+ bili, 4 urobili, trace luekocytes, 1+ bacteria, and heavy mucus - UC obtained on 05/14: pending - No previous micro to be reviewed - started on rocephin on 05/14 Patient endorsed discomfort with urination prior to admission. No longer endorsing any UTI like symptoms. Continue abx and transition per culture results. (4) Hypertension: Code(s): I10 - Essential (primary) hypertension Status: Acute Assessment and Plan: Chronic, continue home medication lisinopril 10 mg daily blood pressures reviewed and stable, continue to monitor Time Spent With Patient Time with patient: 25 - 35 minutes Subjective Date/time seen: 05/15/25 07:20 Interval history: 34-year-old male with past medical history of hypertension presented from an outside hospital for abnormal lab work of elevated LFTs. patient is pleasant sitting up comfortably in the chair with his at bedside. He has no complaints denying chest pain, shortness a breath, palpitations, nausea / vomiting, and abdominal pain. He also denies any pain with urination/burning sensation. Review of Systems Review of Systems: All systems reviewed & are unremarkable except as noted in HPI and below Exam Narrative: AF HR 81 RR 14 SPo2 99 BP 146/96 General: male in no acute respiratory distress who is nontoxic appearing, sitting up in chair HEENT: Normocephalic. Atraumatic. Extraocular movement intact. Sclera clear and anicteric. No facial asymmetry. Chest: Lungs are clear to auscultation bilaterally. No wheezes or crackles. CV: Heart was regular rate and rhythm. Abd: Abdomen was soft. Nontender. Nondistended. Positive bowel sounds. Neuro: Patient is alert.Speech is clear. Objective Data Vital Signs Vital Signs: Vital Signs - 24 hr 05/14/25 11:59 05/14/25 13:57 05/14/25 15:56 Temperature 97.9 F Pulse Rate 89 85 Respiratory Rate 16 15 Blood Pressure 149/93 H Pulse Oximetry 100 100 97 Oxygen Delivery Room Air Room Air 05/14/25 16:04 05/14/25 16:20 05/14/25 20:00 Temperature Pulse Rate Respiratory Rate Blood Pressure 163/99 H Pulse Oximetry Oxygen Delivery Room Air Room Air 05/14/25 20:29 05/15/25 04:37 Temperature 97.5 F L 97.8 F Pulse Rate 81 81 Respiratory Rate 16 14 Blood Pressure 144/96 H 146/96 H Pulse Oximetry 100 99 Oxygen Delivery Intake/Output Intake/Output: Intake & Output 05/12/25 05/13/25 05/14/25 05/15/25 23:59 23:59 23:59 22:59 Intake Total 1652.1 Output Total 200 450 Balance -200 1202.1 Meds/Results Medications: Active Medications Generic Name Dose Route Start Last Admin Trade Name Freq PRN Reason Stop Dose Admin Cyclobenzaprine HCl 10 mg 05/14/25 18:34 Cyclobenzaprine Hcl 10 Mg Tablet PO Q8H PRN back pain Ceftriaxone Sodium 1 gm/ 50 mls @ 100 mls/hr 05/15/25 11:00 Sodium Chloride IVPB Q24H BETO Sodium Chloride 1,000 mls @ 125 mls/hr 05/14/25 14:30 05/15/25 06:21 Normal Saline Iv IV CONT 125 mls/hr .Q8H BETO Administration Lisinopril 10 mg 05/15/25 09:00 Lisinopril 10 Mg Tablet PO DAILY BETO Morphine Sulfate 4 mg 05/14/25 14:27 Morphine Sulfate (*Crx) 4 Mg/Ml Inj IV PUSH Q2H PRN Pain Rated 7-10 Ondansetron HCl 4 mg 05/14/25 14:27 Ondansetron Inj 4 Mg/2 Ml Vial IV PUSH Q4H PRN Nausea Radiology Results: ITS Impressions Upper Quadrant Ultrasound 05/14/25 13:46 IMPRESSION: 1. Chronic cholecystitis possible. Consider HIDA scan if clinical ambiguity. 2. Hepatic steatosis and/or hepatocellular disease. Labs Labs: Laboratory Results - last 24 hr 05/14/25 12:44 Lipase 72 Hepatitis A IgM Ab Negative Hep Bs Antigen Negative Hep B Core IgM Ab Negative Hepatitis C Ab Screen Negative Monoscreen Negative Quality VTE Prophylaxis VTE prophylaxis: pharmacologic ordered
--- NOTE | 2025-05-15 07:36 | P.CONGI_ITS ---
Assessment and Plan Assessment and plan (1) Cholecystitis, chronic: Code(s): K81.1 - Chronic cholecystitis Status: Acute Assessment and Plan: Patient admitted with the suspicion of choledocholithiasis based on imaging and laboratory results, although a stone that has already passed is also a likely possibility. Will await for MRCP to define the best course of action, ERCP versus laparoscopic cholecystectomy with intraoperative cholangiogram. A surgical consultation will be obtained after the MRCP is officially read. (2) Hyperbilirubinemia: Code(s): E80.6 - Other disorders of bilirubin metabolism Status: Acute GI Consult Note Consult date/time: 05/15/25 07:36 Reason for consult: Dark urine-abnormal transaminases HPI: Helder Maradiaga is a 34 year old male who went to [facility] complaining of several days of intermittent abdominal pain related to the back and dark urine. His urine examination is showed no presence of blood but 3+ bilirubin the following labs: AST 481, ALT 750, alk-phos 201, bilirubin 6.8. The CT scan showed nonspecific gallbladder thickening but no intrahepatic or extrahepatic biliary dilatation. An ultrasound demonstrated the presence of stones and possible cholecystitis. Today's bilirubin is 2.5 and the transaminases are significantly decreased compared to admission. Review of Systems Review of Systems: All systems reviewed & are unremarkable except as noted in HPI and below PMFSH Past Medical History Medical History (Updated 05/15/25 @ 00:00 by Milind Carr) Dental caries Hypertension Social History Social History Smoking packs per day: 1 Smoking cigarettes per day: 20.0 Smoking status: Current every day smoker Tobacco type: cigarettes Second hand tobacco smoke exposure: No Alcohol intake: current Substance use: current Substance use type: marijuana Last use: 05/14/25 @ 0700 Lack of Transportation: No Lack of Food: Never True Current Housing: I Have Housing Concerned About Future Housing: No Difficulty Paying Gas/Electric Bills: No Difficulty Paying for Meds: No Currently Unemployed: No Education: High School Diploma/GED Difficulty w/ Childcare or Family Care: No Spiritual care concerns: No Meds Home Medications and Allergies Home Medications ?Medication ?Instructions ?Recorded ?Confirmed ?Type lisinopril 10 mg tablet 10 mg PO DAILY 09/08/2408/07 History cyclobenzaprine 10 mg tablet 10 mg PO Q8H PRN back tarun n 05/14/25 05/14/25 History Allergies Allergy/AdvReac Type Severity Reaction Status Date / Time No Known Allergies Allergy Verified 05/14/25 15:40 Vital Signs Vital Signs - 24 hr 05/14/25 11:59 05/14/25 13:57 05/14/25 15:56 Temperature 97.9 F Pulse Rate 89 85 Respiratory Rate 16 15 Blood Pressure 149/93 H Pulse Oximetry 100 100 97 Oxygen Delivery Room Air Room Air 05/14/25 16:04 05/14/25 16:20 05/14/25 20:00 Temperature Pulse Rate Respiratory Rate Blood Pressure 163/99 H Pulse Oximetry Oxygen Delivery Room Air Room Air 05/14/25 20:29 05/15/25 04:37 Temperature 97.5 F L 97.8 F Pulse Rate 81 81 Respiratory Rate 16 14 Blood Pressure 144/96 H 146/96 H Pulse Oximetry 100 99 Oxygen Delivery Exam Narrative: Not acutely distressed, scleral icterus. Abdomen: Soft, nontender, nondistended. Lauren sign negative.
[2025-05-15 07:55] LABS: Hematocrit 42.7 % (42.0-52.0); Hemoglobin 14.9 g/dL (14.0-18.0); Mean Corpuscular HGB Conc 34.9 g/dl (32-36); Mean Corpuscular Hemoglobin 33.0 pg (26-34); Mean Corpuscular Volume 94.5 fl (80-100); Platelet Count Result 206 k/mm3 (150-375); Red Blood Count 4.52 M/mm3 (4.6-6.20); White Blood Count 5.4 K/mm3 (4.5-10.0)
[2025-05-15 08:00] VITALS: O2SAT 99
[2025-05-15 08:19] LABS: Alanine Aminotransferase 569 U/L (6-50); Albumin Level 4.2 g/dL (3.5-5.1); Alkaline Phosphatase 201 U/L (38-126); Anion Gap 7 mmol/L (4-12); Aspartate Amino Transferase 178 U/L (17-59); Bilirubin,Total 2.5 mg/dL (0.2-1.3); Blood Urea Nitrogen 9 mg/dL (9-20); Calcium 8.7 mg/dL (8.4-10.2); Carbon Dioxide 25 mmol/L (22-30); Chloride 104 mmol/L (98-107); Creatine Kinase 44 U/L (55-170); Estimated CRCL calculation 126 ml/min; Estimated Glomerular Filt Rate > 60; Glucose 87 mg/dL (65-110); Potassium 4.3 mmol/L (3.4-5.0); Sodium 136 mmol/L (137-145); Total Protein 7.0 g/dL (6.3-8.2)
[2025-05-15 14:00] VITALS: BP 149/100; PULSE 89; RESP 18; TEMP 36.6; O2SAT 100
[2025-05-15] MEDS: cefTRIAXone 1 GM in SODIUM CHLORIDE 0.9% IV 50 ML 100 ML IVPB (17:36)
[2025-05-15 21:43] VITALS: BP 142/92; PULSE 77; RESP 16; TEMP 36.2; O2SAT 98
[2025-05-16] VITALS (30 sets, daily range): BP systolic 146–187; BP diastolic 83–116; PULSE 67–107; RESP 12–18; TEMP 34.6–37.1; O2SAT 95–100
[2025-05-16 05:12] LABS: Hematocrit 42.1 % (42.0-52.0); Hemoglobin 14.5 g/dL (14.0-18.0); Mean Corpuscular HGB Conc 34.4 g/dl (32-36); Mean Corpuscular Hemoglobin 32.6 pg (26-34); Mean Corpuscular Volume 94.6 fl (80-100); Platelet Count Result 204 k/mm3 (150-375); Red Blood Count 4.45 M/mm3 (4.6-6.20); White Blood Count 5.7 K/mm3 (4.5-10.0)
[2025-05-16 05:33] LABS: Alanine Aminotransferase 415 U/L (6-50); Albumin Level 4.1 g/dL (3.5-5.1); Alkaline Phosphatase 186 U/L (38-126); Anion Gap 7 mmol/L (4-12); Aspartate Amino Transferase 96 U/L (17-59); Bilirubin,Total 1.5 mg/dL (0.2-1.3); Blood Urea Nitrogen 11 mg/dL (9-20); Calcium 9.0 mg/dL (8.4-10.2); Carbon Dioxide 24 mmol/L (22-30); Chloride 106 mmol/L (98-107); Estimated CRCL calculation 116 ml/min; Estimated Glomerular Filt Rate > 60; Glucose 92 mg/dL (65-110); Potassium 4.5 mmol/L (3.4-5.0); Sodium 137 mmol/L (137-145); Total Protein 6.6 g/dL (6.3-8.2)
[2025-05-16] MEDS: SODIUM CHLORIDE 0.9% IV 1,000 ML 125 ML IV CONT (06:40)
--- NOTE | 2025-05-16 07:28 | P.PNIM_ITS ---
Progress Note: A&P Assessment and Plan (1) Abnormal LFTs (liver function tests): Code(s): R79.89 - Other specified abnormal findings of blood chemistry Status: Inactive Assessment and Plan: LFTs significantly elevated on admission: tot bili 6.8, AST 481, ALT >750, and alk phos 201. CK unremarkable. CT abdomen/pelvis: Nonspecific gallbladder wall thickening. Abdomen Ultrasound: chronic cholecystitis as well as hepatic steatosis and/or hepatocellular disease Patient reports he ate bbq ribs on friday and had increased epigastric/ruq pain then vomiting before pain subsided. LFTs downtrending, likely related to a passing gallstone Currently asymptomatic NPO for surgery, will need to be advanced to low fat diet following procedure GI consulted MRCP: Cholelithiasis. Gallbladder wall thickening may be seen with chronic cholecystitis, interstitial edema, or chronic liver disease Recommend surgery consult for lap marilyn Surgery consulted Plan for laparoscopic cholecystectomy with Dr. Poole today (2) Calculus, ureteral: Code(s): N20.1 - Calculus of ureter Status: Inactive Assessment and Plan: CT abdomen/pelvis: 1 mm non obstruction stone without hydronephrosis Stone should pass on its own, strain urine Renal function wnl (3) Urinary tract infection: Qualifiers: Hematuria presence: with hematuria Urinary tract infection type: site unspecified Qualified Code(s): N39.0 - Urinary tract infection, site not specified; R31.9 - Hematuria, unspecified Code(s): N39.0 - Urinary tract infection, site not specified Status: Inactive Assessment and Plan: - UA: dark orange with 1+ protein, trace glucose, 1+ ketones, positive nitrates, 3+ bili, 4 urobili, trace luekocytes, 1+ bacteria, and heavy mucus - UC obtained on 05/14: negative - No previous micro to be reviewed - started on rocephin on 05/14, discontinued on 05/16 as culture unremarkable (4) Hypertension: Code(s): I10 - Essential (primary) hypertension Status: Acute Assessment and Plan: Chronic, continue home medication lisinopril 10 mg daily blood pressures reviewed and stable, continue to monitor Time Spent With Patient Time with patient: 25 - 35 minutes Subjective Date/time seen: 05/16/25 07:28 Interval history: 34-year-old male with past medical history of hypertension presented from an outside hospital for abnormal lab work of elevated LFTs. Patient is pleasant lying in bed with family at bedside. He has no complaints denying chest pain, palpitations, shortness of breath, nausea/vomiting and abdominal pain. Plan for lap marilyn today with surgery. Review of Systems Review of Systems: All systems reviewed & are unremarkable except as noted in HPI and below Exam Narrative: AF HR 78 RR 16 SPO2 99 BP 146/83 General: male in no acute respiratory distress who is nontoxic appearing, sitting up in chair HEENT: Normocephalic. Atraumatic. Extraocular movement intact. Sclera clear and anicteric. No facial asymmetry. Chest: Lungs are clear to auscultation bilaterally. No wheezes or crackles. CV: Heart was regular rate and rhythm. Abd: Abdomen was soft. Nontender. Nondistended. Positive bowel sounds. Neuro: Patient is alert.Speech is clear. Objective Data Vital Signs Vital Signs: Vital Signs - 24 hr 05/15/25 08:00 05/15/25 14:00 05/15/25 21:43 Temperature 97.8 F 97.2 F L Pulse Rate 89 77 Respiratory Rate 18 16 Blood Pressure 149/100 H 142/92 H Pulse Oximetry 99 100 98 Oxygen Delivery Room Air 05/16/25 04:12 Temperature 97.6 F Pulse Rate 78 Respiratory Rate 16 Blood Pressure 146/83 H Pulse Oximetry 99 Oxygen Delivery Intake/Output Intake/Output: Intake & Output 05/13/25 05/14/25 05/15/25 05/16/25 23:59 23:59 22:59 23:59 Intake Total 3132.1 150 Output Total 200 850 Balance -200 2282.1 150 Meds/Results Medications: Active Medications Generic Name Dose Route Start Last Admin Trade Name Freq PRN Reason Stop Dose Admin Cyclobenzaprine HCl 10 mg 05/14/25 18:34 Cyclobenzaprine Hcl 10 Mg Tablet PO Q8H PRN back pain Enoxaparin Sodium 40 mg 05/15/25 09:00 05/15/25 09:05 Enoxaparin 40 Mg/0.4 Ml Syringe SUB-Q Not Given DAILY BETO Ceftriaxone Sodium 1 gm/ 50 mls @ 100 mls/hr 05/15/25 11:00 05/15/25 17:36 Sodium Chloride IVPB 100 mls/hr Q24H BETO Administration Sodium Chloride 1,000 mls @ 125 mls/hr 05/14/25 14:30 05/16/25 06:40 Normal Saline Iv IV CONT 125 mls/hr .Q8H BETO Administration Lisinopril 10 mg 05/15/25 09:00 05/15/25 09:02 Lisinopril 10 Mg Tablet PO 10 mg DAILY BETO Administration Morphine Sulfate 4 mg 05/14/25 14:27 Morphine Sulfate (*Crx) 4 Mg/Ml Inj IV PUSH Q2H PRN Pain Rated 7-10 Ondansetron HCl 4 mg 05/14/25 14:27 Ondansetron Inj 4 Mg/2 Ml Vial IV PUSH Q4H PRN Nausea Radiology Results: ITS Impressions Upper Quadrant Ultrasound 05/14/25 13:46 IMPRESSION: 1. Chronic cholecystitis possible. Consider HIDA scan if clinical ambiguity. 2. Hepatic steatosis and/or hepatocellular disease. Labs Labs: Laboratory Results - last 24 hr 05/15/25 05/16/25 07:46 04:57 WBC 5.4 5.7 RBC 4.52 L 4.45 L Hgb 14.9 14.5 Hct 42.7 42.1 MCV 94.5 94.6 MCH 33.0 32.6 MCHC 34.9 34.4 RDW 12.3 12.1 Plt Count 206 204 MPV 9.5 9.6 Sodium 136 L 137 Potassium 4.3 4.5 Chloride 104 106 Carbon Dioxide 25 24 Anion Gap 7 7 BUN 9 11 Creatinine 0.73 0.80 Estim Creat Clear Calc 126 116 Estimated GFR > 60 > 60 Glucose 87 92 Calcium 8.7 9.0 Total Bilirubin 2.5 H 1.5 H AST 178 H 96 H ALT 569 H 415 H Alkaline Phosphatase 201 H 186 H Total Creatine Kinase 44 L Total Protein 7.0 6.6 Albumin 4.2 4.1 Quality VTE Prophylaxis VTE prophylaxis: pharmacologic ordered
--- NOTE | 2025-05-16 10:14 | WPDGIPROGNO ---
Progress Note: A&P Assessment and Plan (1) Cholelithiasis: Code(s): K80.20 - Calculus of gallbladder without cholecystitis without obstruction Status: Acute Assessment and Plan: Patient's MRCP she common bile duct and no obstructive stones. He probably passed a stone and should have and laparoscopic cholecystectomy and intraoperative cholangiogram. Plan Surgery consultation today Subjective Date/time seen: 05/16/25 10:14 Interval history: No further pain,patient's labs show marked improvement. Objective Data Vital Signs Vital Signs: Vital Signs - 24 hr 05/15/25 14:00 05/15/25 21:43 05/16/25 04:12 Temperature 97.8 F 97.2 F L 97.6 F Pulse Rate 89 77 78 Respiratory Rate 18 16 16 Blood Pressure 149/100 H 142/92 H 146/83 H Pulse Oximetry 100 98 99 Intake/Output Intake/Output: Intake & Output 05/13/25 05/14/25 05/15/25 05/16/25 23:59 23:59 22:59 23:59 Intake Total 3132.1 150 Output Total 200 850 Balance -200 2282.1 150 Meds/Results Medications: Active Medications Generic Name Dose Route Start Last Admin Trade Name Freq PRN Reason Stop Dose Admin Cyclobenzaprine HCl 10 mg 05/14/25 18:34 Cyclobenzaprine Hcl 10 Mg Tablet PO Q8H PRN back pain Enoxaparin Sodium 40 mg 05/15/25 09:00 05/16/25 08:59 Enoxaparin 40 Mg/0.4 Ml Syringe SUB-Q Not Given DAILY BETO Sodium Chloride 1,000 mls @ 125 mls/hr 05/14/25 14:30 05/16/25 06:40 Normal Saline Iv IV CONT 125 mls/hr .Q8H BETO Administration Lisinopril 10 mg 05/15/25 09:00 05/16/25 08:59 Lisinopril 10 Mg Tablet PO 10 mg DAILY BETO Administration Morphine Sulfate 4 mg 05/14/25 14:27 Morphine Sulfate (*Crx) 4 Mg/Ml Inj IV PUSH Q2H PRN Pain Rated 7-10 Ondansetron HCl 4 mg 05/14/25 14:27 Ondansetron Inj 4 Mg/2 Ml Vial IV PUSH Q4H PRN Nausea Radiology Results: ITS Impressions Upper Quadrant Ultrasound 05/14/25 13:46 IMPRESSION: 1. Chronic cholecystitis possible. Consider HIDA scan if clinical ambiguity. 2. Hepatic steatosis and/or hepatocellular disease. MRCP 05/16/25 07:28 IMPRESSION: 1. Cholelithiasis. Gallbladder wall thickening may be seen with chronic cholecystitis, interstitial edema, or chronic liver disease Labs Labs: Laboratory Results - last 24 hr 05/16/25 04:57 WBC 5.7 RBC 4.45 L Hgb 14.5 Hct 42.1 MCV 94.6 MCH 32.6 MCHC 34.4 RDW 12.1 Plt Count 204 MPV 9.6 Sodium 137 Potassium 4.5 Chloride 106 Carbon Dioxide 24 Anion Gap 7 BUN 11 Creatinine 0.80 Estim Creat Clear Calc 116 Estimated GFR > 60 Glucose 92 Calcium 9.0 Total Bilirubin 1.5 H AST 96 H ALT 415 H Alkaline Phosphatase 186 H Total Protein 6.6 Albumin 4.1
--- NOTE | 2025-05-16 11:41 | P.CONGS_ITS ---
Assessment and Plan Assessment and plan (1) Cholelithiasis: Qualifiers: Cholelithiasis location: gallbladder Cholecystitis presence: with cholecystitis Cholecystitis acuity: chronic Biliary obstruction: without biliary obstruction Qualified Code(s): K80.10 - Calculus of gallbladder with chronic cholecystitis without obstruction Code(s): K80.20 - Calculus of gallbladder without cholecystitis without obstruction Status: Acute Assessment and Plan: * Patient presents with cholelithiasis and likely some chronic cholecystitis, but acute elevation of his liver enzymes. His bilirubin was 6.8 on admission at [place]. GI evaluated and MRCP showed no common duct stone. Symptoms have resolved and LFTs are improving. This is likely related to passing a gallstone through the common bile duct. Would recommend proceeding with a laparoscopic cholecystectomy by Dr. Poole under general anesthesia. Description of the procedure, risks, benefits, alternatives, and expected recovery were discussed with the patient in detail. We discussed the risks of bile leak and bile duct injury, liver/bowel injury, bleeding, and infection. Also discussed the possibility of having to convert to an open procedure if necessary. He agrees to proceed. Dr. Poole will add the patient onto the surgery schedule and he will determine if there is a need for an intraoperative cholangiogram. (2) Transaminitis: Code(s): R74.01 - Elevation of levels of liver transaminase levels Status: Acute Assessment and Plan: * Trending down. Likely related to passed gallstone. (3) Hypertension: Code(s): I10 - Essential (primary) hypertension Status: Acute Plan I have discussed the patient's case and plan of care with Dr. Poole. History of Present Illness Consult details Consult date: 05/16/25 Reason for consult: other (Evaluate for possible cholecystectomy) Requesting physician: Felton Pack MD Narrative: This is a 34-year-old man with history of hypertension, who we have been asked to see in surgical consultation for evaluation of possible cholecystectomy. He presented to [facility] with upper abdominal pain, mid upper back pain, and dark red/brown colored urine. He reports a 4-5 month history of mid back pain that he was been following his PCP for workup as an outpatient. Initially, he thought it was musculoskeletal. He would at times notice RUQ pain that was mild and felt that his pain was typically more in his back than his abdomen. Looking back, he does recall that his symptoms were aggravated by eating high fat or large meals. His symptoms would persist for a few days and then resolve. Then Friday, 3 days ago, he had a sudden onset of severe upper abdominal pain and mid back pain. The back pain felt similar to previous episodes, but he has never had this severe of abdominal pain. He also noticed dark red/brown-colored urine, which prompted him to go to the ER in [place] for evaluation. His UA showed no presence of blood but 3+ bilirubin, and labs showed AST 481, ALT 750, alk-phos 201, bilirubin 6.8. CT scan abdomen/pelvis showed nonspecific gallbladder thickening but no intrahepatic or extrahepatic biliary dilatation. He was directly transferred to [place] ER for evaluation at this facility and concern for common bile duct obstruction. He had a RUQ ultrasound that demonstrated the presence of stones and possible chronic cholecystitis, as well as hepatic steatosis vs hepatocellular disease. GI was consulted and he had an MRCP that showed cholelithiasis with gallbladder wall thickening, but no common duct stone or biliary dilatation. Serial labs showed LFTs trending down with his total bilirubin down to 1.5 today. With further questioning, the patient has also noted acholic stools over the past few days, but today his stool was normal in color. His dark urine has resolved and appeared yellow this morning. He is no longer having any abdominal pain. He has no complaints at this time. No previous abdominal surgeries. He does admit to having about 60 lb weight loss since July of this year due to purposeful dietary modifications for a New Year's resolution. Review of Systems 2 Review of Systems: All systems reviewed & are unremarkable except as noted in HPI and below [facility] Past Medical History Medical History (Updated 05/16/25 @ 12:05 by Angelica Welsh APRN) Dental caries Hypertension Social History Social History Smoking packs per day: 1 Smoking cigarettes per day: 20.0 Smoking status: Current every day smoker Tobacco type: cigarettes Second hand tobacco smoke exposure: No Alcohol intake: current Substance use: current Substance use type: marijuana Last use: 05/14/25 @ 0700 Lack of Transportation: No Lack of Food: Never True Current Housing: I Have Housing Concerned About Future Housing: No Difficulty Paying Gas/Electric Bills: No Difficulty Paying for Meds: No Currently Unemployed: No Education: High School Diploma/GED Difficulty w/ Childcare or Family Care: No Spiritual care concerns: No Meds Home Medications and Allergies Home Medications ?Medication ?Instructions ?Recorded ?Confirmed ?Type lisinopril 10 mg tablet 10 mg PO DAILY 09/08/2408/07 History cyclobenzaprine 10 mg tablet 10 mg PO Q8H PRN back tarun n 05/14/25 05/14/25 History Allergies Allergy/AdvReac Type Severity Reaction Status Date / Time No Known Allergies Allergy Verified 05/14/25 15:40 Vital Signs Vital Signs - 24 hr 05/15/25 14:00 05/15/25 21:43 05/16/25 04:12 Temperature 97.8 F 97.2 F L 97.6 F Pulse Rate 89 77 78 Respiratory Rate 18 16 16 Blood Pressure 149/100 H 142/92 H 146/83 H Pulse Oximetry 100 98 99 Exam 2 Const: General: comfortable and no acute distress Nutritional Appearance: a verage body habitus Orientation/consciousness: patient oriented x3 HENMT: Head: normocephalic and atraumatic Ears: hearing grossly normal bilaterally Mouth: Yes moist mucous membranes Eyes: General: appearance normal, both eyes and all related structures P upils: Equal, round and reactive pupils present Neck: Neck: normal visual inspection and full ROM Resp: Effort & Inspection: no respiratory distress Auscultation: clear to auscultation bilaterally Cardio: Rate: regular rate Rhythm: regular rhythm Peripheral pulses: P eripheral pulses 2+ throughout GI: Inspection: non-distended and no scars GI Palp: Yes Soft to palpation, No Tenderness to palpation present (GI), No Guarding due to palpation present (GI) and No Rebound tenderness present Auscultation: normal bowel sounds R ectal Exam: deferred Skin: General skin exam: normal color Neuro: General: moves all extremities and no focal motor deficits Speech: n ormal speech Motor exam (neuro): 5/5 motor strength present throughout Extrem: General: normal to inspection and no edema Psych: Mental Status: mental status grossly normal Attitude: cooperative Insight: Good insight present (Psych) Judgement: Good judgement present (Psych) Results Labs 05/16/25 04:57 05/16/25 04:57 Labs: Abnormal lab results 05/16/25 Range/Units 04:57 RBC 4.45 L (4.6-6.20) M/mm3 Total Bilirubin 1.5 H (0.2-1.3) mg/dL AST 96 H (17-59) U/L ALT 415 H (6-50) U/L Alkaline Phosphatase 186 H (38-126) U/L Diabetes panel 05/16/25 Range/Units 04:57 Sodium 137 (137-145) mmol/L Potassium 4.5 (3.4-5.0) mmol/L Chloride 106 (98-107) mmol/L Carbon Dioxide 24 (22-30) mmol/L BUN 11 (9-20) mg/dL Creatinine 0.80 (0.7-1.3) mg/dL Glucose 92 (65-110) mg/dL Calcium 9.0 (8.4-10.2) mg/dL AST 96 H (17-59) U/L ALT 415 H (6-50) U/L Alkaline Phosphatase 186 H (38-126) U/L Total Protein 6.6 (6.3-8.2) g/dL Albumin 4.1 (3.5-5.1) g/dL Calcium panel 05/16/25 Range/Units 04:57 Calcium 9.0 (8.4-10.2) mg/dL Albumin 4.1 (3.5-5.1) g/dL Pituitary panel 05/16/25 Range/Units 04:57 Sodium 137 (137-145) mmol/L Potassium 4.5 (3.4-5.0) mmol/L Chloride 106 (98-107) mmol/L Carbon Dioxide 24 (22-30) mmol/L BUN 11 (9-20) mg/dL Creatinine 0.80 (0.7-1.3) mg/dL Glucose 92 (65-110) mg/dL Calcium 9.0 (8.4-10.2) mg/dL Adrenal panel 05/16/25 Range/Units 04:57 Sodium 137 (137-145) mmol/L Potassium 4.5 (3.4-5.0) mmol/L Chloride 106 (98-107) mmol/L Carbon Dioxide 24 (22-30) mmol/L BUN 11 (9-20) mg/dL Creatinine 0.80 (0.7-1.3) mg/dL Glucose 92 (65-110) mg/dL Calcium 9.0 (8.4-10.2) mg/dL Total Bilirubin 1.5 H (0.2-1.3) mg/dL AST 96 H (17-59) U/L ALT 415 H (6-50) U/L Alkaline Phosphatase 186 H (38-126) U/L Total Protein 6.6 (6.3-8.2) g/dL Albumin 4.1 (3.5-5.1) g/dL All other labs normal. Imaging Additional studies: ITS Impressions Upper Quadrant Ultrasound 05/14/25 13:46 IMPRESSION: 1. Chronic cholecystitis possible. Consider HIDA scan if clinical ambiguity. 2. Hepatic steatosis and/or hepatocellular disease. MRCP 05/16/25 07:28 IMPRESSION: 1. Cholelithiasis. Gallbladder wall thickening may be seen with chronic cholecystitis, interstitial edema, or chronic liver disease
--- NOTE | 2025-05-16 14:17 | ECG_ITS ---
Test Date: 2025-05-16 14:28:59 Measurements Intervals [place] Rate: 79 P: 53 MT: 148 QRS: 42 QRSD: 109 T: 42 QT: 354 QTc: 406 Interpretive Statements SINUS RHYTHM No previous ECG available for comparison Electronically Signed On 05-16-2025 18:44:00 [employer]AL [employer] WHE[employer] by Davonte Palacios M.D.
--- NOTE | 2025-05-16 14:19 | P.PNAN_ITS ---
Anes - Initial Pre Proc Eval Procedure: Operation Date: 05/16/25 16:00 Proposed Procedures p Laparoscopic Cholecystectomy - Joann Poole MD Date/Time: 05/16/25 14:19 Surgeon: Dawit Vargas MD Pre Op Diagnosis: CHRONIC CHOCLECYSTITIS,CBD OBSTRUCTION Patient Data Age: 34 Gender: M Height: 1.78 m Weight: 77.9 kg Last Vital Signs Temp 36.4 C 05/16/25 04:12 Pulse 78 05/16/25 04:12 Resp 16 05/16/25 04:12 BP 146/83 H 05/16/25 04:12 Pulse Ox 99 05/16/25 09:00 O2 Del Method Room Air 05/16/25 09:00 Allergies Allergy/AdvReac Type Severity Reaction Status Date / Time No Known Allergies Allergy Verified 05/14/25 15:40 Home Medications ?Medication ?Instructions ?Recorded ?Confirmed ?Type lisinopril 10 mg tablet 10 mg PO DAILY 09/08/24 1108/07 History cyclobenzaprine 10 mg tablet 10 mg PO Q8H PRN back tarun n 05/14/25 05/14/25 History Laboratory Tests 05/16/25 04:57 WBC 5.7 K/mm3 (4.5-10.0) RBC 4.45 L M/mm3 (4.6-6.20) Hgb 14.5 g/dL (14.0-18.0) Hct 42.1 % (42.0-52.0) MCV 94.6 fl (80-100) MCH 32.6 pg (26-34) MCHC 34.4 g/dl (32-36) RDW 12.1 % (11.5-14.5) Plt Count 204 k/mm3 (150-375) MPV 9.6 fl (7.4-10.4) Sodium 137 mmol/L (137-145) Potassium 4.5 mmol/L (3.4-5.0) Chloride 106 mmol/L (98-107) Carbon Dioxide 24 mmol/L (22-30) Anion Gap 7 mmol/L (4-12) BUN 11 mg/dL (9-20) Creatinine 0.80 mg/dL (0.7-1.3) Estim Creat Clear Calc 116 ml/min Estimated GFR > 60 (59 - ) Glucose 92 mg/dL (65-110) Calcium 9.0 mg/dL (8.4-10.2) Total Bilirubin 1.5 H mg/dL (0.2-1.3) AST 96 H U/L (17-59) ALT 415 H U/L (6-50) Alkaline Phosphatase 186 H U/L (38-126) Total Protein 6.6 g/dL (6.3-8.2) Albumin 4.1 g/dL (3.5-5.1) Patient hx anesthesia problems: none Family hx anesthesia problems: none Results Review: All pre-operative results and documents have been reviewed as part of the pre- operative evaluation. [facility] Past Medical History Medical History Dental caries Hypertension Social History Social History Smoking packs per day: 1 Smoking cigarettes per day: 20.0 Smoking status: Current every day smoker Tobacco type: cigarettes Second hand tobacco smoke exposure: No Alcohol intake: current Substance use: current Substance use type: marijuana Last use: 05/14/25 @ 0700 Lack of Transportation: No Lack of Food: Never True Current Housing: I Have Housing Concerned About Future Housing: No Difficulty Paying Gas/Electric Bills: No Difficulty Paying for Meds: No Currently Unemployed: No Education: High School Diploma/GED Difficulty w/ Childcare or Family Care: No Spiritual care concerns: No Anes - Eval Final PreProcedure Day of Procedure 05/16/25 14:19 Patient weight: normal Heart: regular rate and rhythm Lungs: decreased breath sounds Airway: Mallampati scale class II Neurological: alert and oriented Last oral intake: >/= 8 hours ASA classification: III Emergent: no Anesthetic plan: proceed Anesthesia type and monitoring: general ETT and standard monitoring Results Review: All pre-operative results and documents have been reviewed as part of the pre- operative evaluation. Informed Consent: The patient's anesthetic plan and its attendant risks and benefits were discussed with the patient/family/POA. Questions were solicited and answers provided to the satisfaction of the patient/family/POA.
[2025-05-16] MEDS: LACTATED RINGERS 1,000 ML 30 ML IV CONT ×2 (14:24→16:45)
--- NOTE | 2025-05-16 14:41 | PC.NURSE ---
FINAL URINE CULTURE REPORT; NO GROWTH.
--- NOTE | 2025-05-16 15:04 | WPDHPUPDATE1 ---
History and Physical Update Update Date/Time: 05/16/25 15:04 History and Physical has been reviewed, including an updated exam of the patient. There are NO changes in the patient's condition. Risks, benefits, and alternatives have been discussed and questions answered. Patient agrees to proceed with procedure.
--- NOTE | 2025-05-16 15:13 | WPDHPUPDATE1 ---
History and Physical Update Update Date/Time: 05/16/25 15:13 History and Physical has been reviewed, including an updated exam of the patient. There are NO changes in the patient's condition. Risks, benefits, and alternatives have been discussed and questions answered. Patient agrees to proceed with procedure.
[2025-05-16] MEDS: ceFAZolin 2 GM in SODIUM CHLORIDE 0.9% IV 50 ML 100 ML IVPB (15:16)
[2025-05-16] MEDS: BUPIVACAINE/EPINEPHRINE 0.5% 50 ML VIAL 30 ML INFILTRATE (15:33)
--- NOTE | 2025-05-16 15:57 | S_PTH ---
PATIENT: Helder Maradiaga LOC: [id number] U#:[id number] AGE/SX: 34/M ROOM: 341 RE05/14/[address]: Magno Lackey MD : 1990 BED: 01 DIS: 05/17/2025 SPEC #: [id number] RECD: 05/17/25 07:34 STATUS: BRADY REEdgar #: [id number] MEGA: 05/16/25 15:[address]: Joann Poole DEPT: [facility] Surgical RECD BY: Girish Edwards ENTERED: 05/17/25 07:34 SP TYPE: Surgical OTHR DR: LLUVIA Saleem MD Laura A. Wilson, TRAFFIC II MANAGER Tissues: A - Gallbladder Procedures: Hematoxylin and Eosin Stain Gross and Microscopic Level 3
--- NOTE | 2025-05-16 16:21 | W.PM.PROC2 ---
Procedure Note - Detailed Date of Procedure 05/16/25 Pre-op Diagnosis Cholecystitis, cholelithiasis Post-op Diagnosis Same Procedure Performed laparoscopic cholecystectomy Surgeon Joann Poole MD Liaison Officer Cruz Anesthesia General and Local Indications 34-year-old male presenting to hospital with cholecystitis, choledocholithiasis. Subsequent MRCP and LFTs showed choledocholithiasis had resolved spontaneously. Patient now set up for interval cholecystectomy. Findings Acute cholecystitis with cholelithiasis Description of Procedure The patient was taken to the operating room placed in the supine position. After adequate induction of general anesthesia, the patient was prepped and draped in normal sterile fashion. A time-out was then performed to verify the patient's identity as well as the procedure being performed. I then made a 5 mm incision in the infraumbilical region. Through this, a Veress needle was placed into the peritoneal cavity and CO2 gas was then insufflated. After adequate pneumoperitoneum was achieved, the Veress needle was removed and a 5 mm optiview trocar was placed through this incision under direct visualization. I then placed the laparoscope through this trocar site and under direct visualization placed a further 12 mm subxiphoid port as well as 2 additional 5 mm ports in the right upper abdomen. The gallbladder was then identified and was noted to be inflamed, distended, and full of gallstones. I was able to place a grasper at the dome of the gallbladder and this was retracted anterior and cephalad up over the liver. A 2nd retractor was then placed at the infundibulum and retracted laterally, this allowed visualization of the triangle of Calot. I then was able to visualize the cystic duct in its entirety from its proximal insertion into the gallbladder, to its distal junction with the common hepatic/common bile duct junction. At this point, I carefully skeletonized the proximal cystic duct with the [place] dissector. I then clipped and transected the proximal cystic duct. Next I visualized the cystic artery. Again the artery was skeletonized, clipped, and transected. I then used the Bovie cautery to take down the peritoneal attachments of the gallbladder off the liver bed. This was somewhat difficult given the amount of inflammation in the posterior space. Once the gallbladder specimen was completely detached, an endo-pouch was placed through the 12 mm port site. I then placed the gallbladder specimen into the Endo pouch and removed the endo-pouch from the 12 mm port site. The specimen will now be sent to pathology for further review. I then copiously irrigated the right upper quadrant. Some mild oozing was noted in the liver bed and this was controlled with the bovie cautery. I then placed some hemostatic powder in the liver bed. Hemostasis was noted in the liver bed, the clips were noted to be in good position on both the cystic duct stump and the cystic artery stump. No other pathology was noted in the right upper quadrant. I then moved the laparoscope to the subxiphoid port. No iatrogenic injury or other pathology was noted in the lower abdomen. I then closed the 12 mm trocar site under direct visualization using the William cone and 0 Vicryl suture. At this point, the abdomen was desufflated and all ports removed. All port sites were then closed with 4.O Monocryl subcuticular sutures. Dermabond was placed on each incision. The patient tolerated the procedure well, was extubated in the operating room postoperative and will be transferred to the recovery room in stable condition Estimated Blood Loss 20 Drains No Packing No Pathology Yes Complications No immediate complications Condition Stable Disposition PACU [facility] Billing Surgery - Charge Forward: Surgery Billing
[2025-05-16] MEDS: fentaNYL CITRATE INJ (*CRX) 100 MCG/2 ML VIAL 25 MCG IV PUSH ×6 (16:36→17:09)
[2025-05-16] MEDS: HYDROmorphone HCL INJ (*CRX) 1 MG/ML SYR IV PUSH ×2 (17:25→17:40)
[2025-05-16] MEDS: ONDANSETRON INJ 4 MG/2 ML VIAL IV PUSH (17:56)
[2025-05-16] MEDS: PROCHLORPERAZINE EDISYLATE 10 MG/2 ML VIAL IV PUSH (19:48)
[2025-05-16] MEDS: SODIUM CHLORIDE 0.9% IV 1,000 ML 999 ML IV CONT (19:59)
[2025-05-16] MEDS: MORPHINE SULFATE (*CRX) 4 MG/ML INJ IV PUSH (20:07)
--- NOTE | 2025-05-16 20:31 | PC.NURSE ---
Railroad Signal Operator reached out to Dr Poole at 2020 to update him on patients condition and current vital signs.
[2025-05-16] MEDS: SODIUM CHLORIDE 0.9% IV 1,000 ML 100 ML IV CONT (22:38)
[2025-05-16] MEDS: HYDROcodone/acetaminophen (*CRX) 5-325 MG TABLET 1 TAB PO (22:39)
[2025-05-17 04:11] VITALS: BP 145/90; PULSE 103; RESP 18; TEMP 36.8; O2SAT 99
[2025-05-17] MEDS: HYDROcodone/acetaminophen (*CRX) 5-325 MG TABLET 1 TAB PO ×3 (04:19→12:17)
--- NOTE | 2025-05-17 05:09 | PM.EVENT ---
Event Note Event Note Event Note: Rapid response called to CT scan status post laparoscopic cholecystectomy due to being cool to touch, temperature 94.5? F, nausea. Saturating well on room air, systolic blood pressure 160s. Patient given Compazine 10 mg IV x1. His symptoms resolved. Abdomen pelvis CT with contrast completed, demonstrates free air in the gallbladder fossa, punctuate 1 mm nonobstructing right renal stone. Patient's exam unremarkable aside from being cold to touch. Patient returned to medical floor and placed on a Alessia Hugger. Temperature normalized. He was resting comfortably without any further complaints.
[2025-05-17 05:11] LABS: Hematocrit 38.8 % (42.0-52.0); Hemoglobin 13.7 g/dL (14.0-18.0); Mean Corpuscular HGB Conc 35.3 g/dl (32-36); Mean Corpuscular Hemoglobin 32.4 pg (26-34); Mean Corpuscular Volume 91.7 fl (80-100); Platelet Count Result 216 k/mm3 (150-375); Red Blood Count 4.23 M/mm3 (4.6-6.20); White Blood Count 10.8 K/mm3 (4.5-10.0)
[2025-05-17 05:40] LABS: Alanine Aminotransferase 325 U/L (6-50); Albumin Level 3.9 g/dL (3.5-5.1); Alkaline Phosphatase 149 U/L (38-126); Anion Gap 7 mmol/L (4-12); Aspartate Amino Transferase 79 U/L (17-59); Bilirubin,Total 1.3 mg/dL (0.2-1.3); Blood Urea Nitrogen 9 mg/dL (9-20); Calcium 9.1 mg/dL (8.4-10.2); Carbon Dioxide 28 mmol/L (22-30); Chloride 101 mmol/L (98-107); Estimated CRCL calculation 133 ml/min; Estimated Glomerular Filt Rate > 60; Glucose 129 mg/dL (65-110); Potassium 4.2 mmol/L (3.4-5.0); Sodium 136 mmol/L (137-145); Total Protein 6.4 g/dL (6.3-8.2)
--- NOTE | 2025-05-17 10:19 | PM.PNGS ---
Progress Note: A&P Assessment and Plan (1) Cholelithiasis: Qualifiers: Cholelithiasis location: gallbladder Cholecystitis presence: with cholecystitis Cholecystitis acuity: chronic Biliary obstruction: without biliary obstruction Qualified Code(s): K80.10 - Calculus of gallbladder with chronic cholecystitis without obstruction Code(s): K80.20 - Calculus of gallbladder without cholecystitis without obstruction Status: Acute Assessment and Plan: S/p lap marilyn with a hypothermic event last night after surgery. This has resolved and his temp is normal again. He is feeling much better this morning. Tolerating a diet. CT reviewed and showed postoperative changes. Labs this am are stable. Advance diet as tolerated to low fat. Surgically stable for discharge on low fat diet from our standpoint. F/u in [address] Poole. (2) Transaminitis: Code(s): R74.01 - Elevation of levels of liver transaminase levels Status: Acute Assessment and Plan: Trending down. Likely related to a gallstone that passed. Total bilirubin normalized. (3) Hypertension: Code(s): I10 - Essential (primary) hypertension Status: Acute Plan I have discussed the patient's case and plan of care with Dr. Poole. Subjective Subjective Date/Time Seen: 05/17/25 10:19 Post Op day: 1 (Laparoscopic cholecystectomy) Patient reports: feels better Interval history: Patient had a hypothermic event last night, postop day 0. His temp was as low as 94.2. He was diaphoretic and hypertensive. Nursing reports they had to get a rectal temp, which was still low. He was having abdominal pain, nausea, and vomiting. Hospitalist ordered a stat CT abd/pelvis, which showed postoperative changes and a nonobstructing right renal stone. No other acute findings. They warmed him with a bear hugger and monitored him closely. His temp has returned to normal and he is not longer having any nausea or vomiting. He reports feeling so much better this morning. He has ate breakfast and tolerated this well. He feels sore at his incisions, but otherwise no complaints. Exam Const: General: comfortable and no acute distress Resp: Effort & Inspection: normal respiratory effort Auscultation: clear to auscultation bilaterally Cardio: Rate: regular rate Rhythm: regular rhythm GI: Inspection: non-distended and incision (incisions dry and intact) GI Palp: Yes Soft to palpation, Yes Tenderness to palpation present (GI) (incisional) and No Guarding due to palpation present (GI) Auscultation: normal bowel sounds Neuro: General: moves all extremities and no focal motor deficits Extrem: General: no calf tenderness and no edema Psych: Mental Status: mental status grossly normal Insight: Good insight present (Psych) Objective Data Vital Signs Vital Signs: Vital Signs - 24 hr 05/16/25 13:55 05/16/25 16:24 05/16/25 16:31 Temperature 98.7 F 97.5 F L Pulse Rate 77 101 H 107 H Respiratory Rate 18 16 Blood Pressure 164/101 H 175/109 H 181/116 H Pulse Oximetry 100 100 100 Oxygen Delivery Room Air Simple Face Mask Simple Face Mask Oxygen Flow Rate 6 6 05/16/25 16:40 05/16/25 16:55 05/16/25 17:03 Temperature Pulse Rate 85 85 84 Respiratory Rate 12 14 Blood Pressure 171/107 H 160/109 H Pulse Oximetry 99 100 Oxygen Delivery Room Air Room Air Oxygen Flow Rate 05/16/25 17:10 05/16/25 17:25 05/16/25 17:36 Temperature Pulse Rate 80 86 78 Respiratory Rate 16 16 Blood Pressure 161/102 H 159/103 H Pulse Oximetry 100 99 Oxygen Delivery Room Air Room Air Oxygen Flow Rate 05/16/25 17:40 05/16/25 17:55 05/16/25 18:20 Temperature Pulse Rate 83 80 70 Respiratory Rate 18 16 16 Blood Pressure 154/100 H 160/97 H 162/101 H Pulse Oximetry 99 100 99 Oxygen Delivery Room Air Room Air Oxygen Flow Rate 05/16/25 18:35 05/16/25 19:04 05/16/25 20:00 Temperature 94.5 F L 94.2 F L 95.8 F L Pulse Rate 79 Respiratory Rate 18 Blood Pressure 158/96 H Pulse Oximetry 99 Oxygen Delivery Oxygen Flow Rate 05/16/25 20:09 05/16/25 21:32 05/16/25 21:34 Temperature 95.4 F L Pulse Rate 78 67 Respiratory Rate 18 18 Blood Pressure 178/93 H 160/99 H Pulse Oximetry 100 95 Oxygen Delivery Room Air Oxygen Flow Rate 05/16/25 22:14 05/16/25 22:15 05/16/25 22:30 Temperature 95.4 F L 97.5 F L 97.5 F L Pulse Rate 84 77 Respiratory Rate 18 18 Blood Pressure 153/101 H 161/105 H Pulse Oximetry 100 96 Oxygen Delivery Oxygen Flow Rate 05/16/25 22:33 05/16/25 22:33 05/16/25 22:45 Temperature 96.5 F L 96.4 F L 97.5 F L Pulse Rate 91 Respiratory Rate 18 Blood Pressure 162/100 H Pulse Oximetry 98 Oxygen Delivery Oxygen Flow Rate 05/16/25 22:45 05/16/25 23:00 05/16/25 23:03 Temperature 96.4 F L 97.5 F L 96.5 F L Pulse Rate 98 Respiratory Rate 18 Blood Pressure 163/111 H Pulse Oximetry 98 Oxygen Delivery Oxygen Flow Rate 05/16/25 23:15 05/16/25 23:30 05/16/25 23:30 Temperature 97.3 F L 97.5 F L 97.0 F L Pulse Rate 92 98 Respiratory Rate 18 18 Blood Pressure 187/101 H 170/107 H Pulse Oximetry 100 100 Oxygen Delivery Oxygen Flow Rate 05/16/25 23:30 05/16/25 23:45 05/17/25 04:11 Temperature 97.0 F L 97.7 F 98.2 F Pulse Rate 98 103 H Respiratory Rate 18 18 Blood Pressure 187/99 H 145/90 H Pulse Oximetry 99 99 Oxygen Delivery Oxygen Flow Rate Intake/Output Intake/Output: Intake & Output 05/14/25 05/15/25 05/16/25 05/17/25 23:59 22:59 23:59 23:59 Intake Total 3132.1 1000 926.7 Output Total 200 850 Balance -200 2282.1 1000 926.7 Meds/Results Medications: Active Medications Generic Name Dose Route Start Last Admin Trade Name Freq PRN Reason Stop Dose Admin Hydrocodone Bitart/Acetaminophen 1 tab 05/16/25 18:05 05/17/25 08:28 Hydrocodone/Acetaminophen (*Crx) 5-325 Mg Tablet PO 1 tab Q4H PRN Administration Pain Rated 4-6 Cyclobenzaprine HCl 10 mg 05/14/25 18:34 Cyclobenzaprine Hcl 10 Mg Tablet PO Q8H PRN back pain Enoxaparin Sodium 40 mg 05/15/25 09:00 05/17/25 08:35 Enoxaparin 40 Mg/0.4 Ml Syringe SUB-Q Not Given DAILY [facility] Sodium Chloride 1,000 mls @ 100 mls/hr 05/16/25 19:00 05/17/25 04:18 Normal Saline Iv IV CONT 0 mls/hr .Q10H BETO Infusion Lisinopril 10 mg 05/15/25 09:00 05/17/25 08:28 Lisinopril 10 Mg Tablet PO 10 mg DAILY BETO Administration Morphine Sulfate 4 mg 05/14/25 14:27 05/16/25 20:07 Morphine Sulfate (*Crx) 4 Mg/Ml Inj IV PUSH 4 mg Q2H PRN Administration Pain Rated 7-10 Ondansetron HCl 4 mg 05/14/25 14:27 Ondansetron Inj 4 Mg/2 Ml Vial IV PUSH Q4H PRN Nausea Prochlorperazine Edisylate 10 mg 05/16/25 18:57 Prochlorperazine Edisylate 10 Mg/2 Ml Vial IV PUSH Q6H PRN Nausea And Vomiting Radiology Results: ITS Impressions Upper Quadrant Ultrasound 05/14/25 13:46 IMPRESSION: 1. Chronic cholecystitis possible. Consider HIDA scan if clinical ambiguity. 2. Hepatic steatosis and/or hepatocellular disease. MRCP 05/16/25 07:28 IMPRESSION: 1. Cholelithiasis. Gallbladder wall thickening may be seen with chronic cholecystitis, interstitial edema, or chronic liver disease Abdomen/Pelvis CT 05/16/25 20:00 IMPRESSION: 1. Free air and fluid in the gallbladder fossa, consistent with recent cholecystectomy 2: Punctate 1 mm nonobstructing right renal stone. Labs Labs: Laboratory Results - last 24 hr 05/16/25 05/17/25 18:51 04:47 WBC 10.8 H RBC 4.23 L Hgb 13.7 L Hct 38.8 L MCV 91.7 MCH 32.4 MCHC 35.3 RDW 12.1 Plt Count 216 MPV 9.8 Sodium 136 L Potassium 4.2 Chloride 101 Carbon Dioxide 28 Anion Gap 7 BUN 9 Creatinine 0.69 L Estim Creat Clear Calc 133 Estimated GFR > 60 Glucose 129 H POC Capillary Glucose 139 H Calcium 9.1 Total Bilirubin 1.3 AST 79 H ALT 325 H Alkaline Phosphatase 149 H Total Protein 6.4 Albumin 3.9
[2025-05-17 12:10] VITALS: BP 181/102; PULSE 99; RESP 18; TEMP 36.9; O2SAT 100
[2025-05-17 13:06] VITALS: BP 152/97
--- NOTE | 2025-05-17 13:25 | P.DS_ITS ---
DS: Admitting Diagnosis Discharge Date 05/17/2025 Admitting Diagnosis cholecystitis, chronic abnormal LFTs calculus, ureteral uti htn DS: Discharge Diagnosis Discharge Diagnosis (1) Cholecystitis, chronic: Code(s): K81.1 - Chronic cholecystitis Status: Acute (2) Abnormal LFTs (liver function tests): Code(s): R79.89 - Other specified abnormal findings of blood chemistry Status: Inactive (3) Calculus, ureteral: Code(s): N20.1 - Calculus of ureter Status: Inactive (4) Urinary tract infection: Qualifiers: Hematuria presence: with hematuria Urinary tract infection type: site unspecified Qualified Code(s): N39.0 - Urinary tract infection, site not specified; R31.9 - Hematuria, unspecified Code(s): N39.0 - Urinary tract infection, site not specified Status: Inactive (5) Hypertension: Code(s): I10 - Essential (primary) hypertension Status: Acute DS: Summary Hospital Course Reason for hospitalization: cholecystitis, chronic abnormal LFTs calculus, ureteral uti htn Hospital Course: 34-year-old male with past medical history of hypertension presented from an outside hospital for abnormal lab work of elevated LFTs. Not meeting sepsis criteria on admission. CT abdomen/pelvis showed a nonspecific gallbladder wall thickening. Abdomen US showed chronic cholecystitis as well as hepatic steatosis and/or hepatocellular disease. Throughout admission patients LFTs continued to downtrend. Elevation likely related to a stone that had passed. GI was consulted and a MRCP was obtained that showed cholelithiasis with gallbladder wall thickening may be seen with chronic cholecystitis, interstitial edema, or chronic liver disease. No intervention required from GI. Surgery consulted and patient underwent a lap marilyn on 05/[address] Poole. Following the procedure patient developed hypothermia with associated nausea, placed on bare hugger and hypothermia resolved. A repeat CT showed postoperative changes. Repeat labs on 05/17 were stable with continued downtrending LFTs. Patients vitals remain stable. Patient was able to advance to a low fat diet which he is tolerating well denying any nausea/vomiting or worsening abdominal pain. He is ambulating throughout the unit with family. He does have intermittent hypertension however this is chronic and also related to pain. Pressures improved with oral pain medication. He states pain has been well controlled on the pain regimen. Discussed with patient that he is to continue monitoring his blood pressures at home and follow up with PCP. Patient evaluated by surgery today who state patient stable for discharge from their perspective. Patient states and is ready for discharge. Patient to continue the low fat diet, pain medications as prescribed, and follow up with surgery as scheduled. UA was initially concerning for acute infection and patient endorsed slight discomfort prior to admission. He was started on IV antibiotics on admission. Urine culture negative. Antibiotics discontinued. Patient denies any pain with urination, burning sensation, blood in urine, and increased frequency/urgency. CT abdomen/pelvis showed a 1 mm nonobstructing stone without hydronephrosis. The stone should pass on its own and renal function remains within normal. Patient endorsed slight incisional pain on discharge but otherwise denied any chest pain, palpitations, shortness of breath, nausea/vomiting. Patient discharged home in stable condition with family. He is to follow up with his PCP in 1 week and surgery as scheduled. Status at Discharge Functional status at discharge: independent ambulation Time Spent with Patient Time attestation: Total time spent providing and/or coordinating discharge services: Time spent: Greater than 30 minutes Exam Narrative: AF HR 99 RR 18 SpO2 100 BP 152/97 General: male in no acute respiratory distress who is nontoxic appearing, sitting up in bed HEENT: Normocephalic. Atraumatic. Extraocular movement intact. Sclera clear and anicteric. No facial asymmetry. Chest: Lungs are clear to auscultation bilaterally. No wheezes or crackles. CV: Heart was regular rate and rhythm. Abd: Abdomen was soft. Tender to palpation. Nondistended. Positive bowel sounds. Surgical incsions clean/dry/intact without redness, warmth or drainage. Neuro: Patient is alert.Speech is clear. DS: Data Data Completed and Pending Completed studies during hospitalization: abdomen/pelvis CT upper quadrant us mrcp Pending studies at discharge: Pending at discharge 05/16/25 15:57 Surgical [PTH] Routine Labs on day of discharge: Labs from last 24 hours 05/16/25 04:57 WBC 5.7 RBC 4.45 L Hgb 14.5 Hct 42.1 MCV 94.6 MCH 32.6 MCHC 34.4 RDW 12.1 Plt Count 204 MPV 9.6 Sodium 137 Potassium 4.5 Chloride 106 Carbon Dioxide 24 Anion Gap 7 BUN 11 Creatinine 0.80 Estim Creat Clear Calc 116 Estimated GFR > 60 Glucose 92 Calcium 9.0 Total Bilirubin 1.5 H AST 96 H ALT 415 H Alkaline Phosphatase 186 H Total Protein 6.6 Albumin 4.1 Discharge Plan Discharge Attending physician on discharge: Magno Lackey Consulting providers: Mounika Vo; Joann Poole Discharging Clinician: Mounika Vo Anticipated Discharge Date/Time: 05/17/25 13:08 Patient Disposition: Home Activity: other - see discharge instructions Diet: as tolerated and low fat Discharge Instructions: DISCHARGE INSTRUCTION SHEET FOR HERNIA, GALLBLADDER AND APPENDIX SURGERIES DR. POOLE 1. May shower in 24 hours, no soaking in bath x 2weeks. 2. Call office for: * Wound increasingly painful or bleeding * Vomiting * Fever of greater than 101 degrees 3. If no bowel movement for three days, take 1 oz. (30 ml) Milk of Magnesia or MiraLax 17g 1 to 2 times daily. 4. No heavy lifting > 10-15 pounds x 2 weeks for laparoscopic cholecystectomy or appendectomy. 5. No driving for 3 days or while taking narcotic pain medications. 6. Ice to surgical site for 48 hours (30 min on, then 30 min off). 7. Up walking 10-30 minutes three times per day. 8. Resume previous home medications. 9. Call to schedule a follow-up appointment with Dr. Poole in 10-14 days in office. ([phone]) 10. Oral pain medications prescription to be sent to pharmacy. Take Tylenol 500mg every 6 hours and Ibuprofen 600mg every 6 hours for the first 2 days, then as needed. [place] as needed for breakthrough pain, attached is information on this medication Do not drive or operate heavy machinery on this medication 11. NUTRITION: Start out by drinking fluids and increase your diet as tolerated. If you experience nausea, try dry toast, crackers, and 7-UP. If nausea or vomiting persists, contact your surgeon?s office. 12. Gallbladders-Low Fat Diet for 2 weeks Patient noted to have elevated blood pressures, likely chronic vs pain induced Monitor blood pressures and record results for primary care provider follow up Take caution while standing, rising, or moving Change positions slowly taking a break between each position change If you standing feel dizzy sit back down and take a break Encouraged to continue with yearly vaccinations Return to the emergency department if he developed sudden shortness of breath, chest pain, nausea, vomiting, upset stomach or intractable diarrhea Return to the emergency department if you develop fever greater than 100.5 Follow-up with the primary care physician within 1-2 weeks Thank you for [facility] for your healthcare needs Revised 07/2020 Patient Instructions: Laparoscopic Cholecystectomy, Hydrocodone/Acetaminophen (By mouth), How to Stop Smoking (GEN), Cholecystitis (ED), Gallstones (DC), Low Fat Diet (DC), Hypertension (DC) Patient Language: Yi Stand Alone Forms: General Discharge Information Follow-up/Referrals: Joann Poole MD [Physician, General Surgery] - 2 Weeks Shad,Samantha Gurrola NP [Primary Care Provider, Unknown] - 1 Week Discharge Medications: New hydrocodone-acetaminophen 5-325 mg tablet 1 tablet PO Q6H PRN (Reason: pain) Qty: 20 0RF Continued cyclobenzaprine 10 mg tablet 10 mg PO Q8H PRN (Reason: back pain) lisinopril 10 mg tablet 10 mg PO DAILY Date of admission: 05/14/25 14:27 Primary Care Provider: Shad,Samantha Gurrola Admitting Provider: Dawit Vargas Attending physician on admission: Dawit Vargas Condition: Stable Hospitalist MIPS Heart Failure (Exclusion) Patient has history of Heart Transplant or Left Ventricular Assistive Device?: No IF YES, STOP HERE Heart Failure (Qualifier) Patient has current or prior documentation of LVEF less than or equal to 40%, or mod/servere depressed LVSF?: No IF NO, STOP HERE
== END 2025-05-17 13:53 | disposition home or self-care (01) ==
LOC: ANHED 12:38 → ANH3MED 15:52
PROVIDERS: Student in an Organized Health Care Education/Training Program; Surgery; Admitting Provider Internal Medicine; Emergency Provider Emergency Medicine; PCP Nurse Practitioner Family; Visit Provider Internal Medicine
PROC: 0FT44ZZ Resection of Gallbladder, Percutaneous Endoscopic Approach (ICD-10-PCS; CPT 47562; principal; 2025-05-16 16:00)
DX: K80.10 Calculus of gallbladder with chronic cholecystitis without obstruction (principal); R79.89 Other specified abnormal findings of blood chemistry; N20.1 Calculus of ureter; T68.XXXA Hypothermia, initial encounter; N39.0 Urinary tract infection, site not specified; I10 Essential (primary) hypertension; F17.210 Nicotine dependence, cigarettes, uncomplicated
CPT/HCPCS: 47562; 36415; 74177; 74183; 76376; 76705; 80053; 80074; 82550; 82948; 83690; 85027; 86308; 88304; 93005; 96374; 99285; J0690; A9270; A9577; G0378; J0696; J0780; J1100; J1171; J2003; J2250; J2270; J2405; J2704; J3010; J7030; J7120; Q9967